=== PATIENT | female | born 1950 | race Caucasian/White ===

== ENCOUNTER 2016-09-14 12:38 | Emergency (ER) | payer MEDICARE ==
[2016-09-14] MEDS ORDERED: NORMAL SALINE 500 ML IV ONE (12:52)
[2016-09-14 13:16] LABS: ABSOLUTE EOSINOPHILS # (AUTO) 0.4 10^3/uL (0.0-0.6); ABSOLUTE LYMPHOCYTES (AUTO) 1.7 10^3/uL (0.5-4.7); ABSOLUTE MONOCYTES (AUTO) 0.4 10^3/uL (0.1-1.4); ABSOLUTE NEUT (AUTO) 3.2 10^3/uL (1.7-8.2); BASOPHILS % (AUTO) 0.8 % (0-2); EOSINOPHILS % (AUTO) 7.1 % (0-6); HEMATOCRIT 34.7 % (36.0-47.0); HEMOGLOBIN 11.9 g/dL (12.0-15.5); LYMPHOCYTES % (AUTO) 29.2 % (13-45); MEAN CORPUSCULAR HEMOGLOBIN 29.6 pg (27.0-33.4); MEAN CORPUSCULAR HGB CONC 34.3 g/dL (32.0-36.0); MEAN CORPUSCULAR VOLUME 86 fl (80-97); MONOCYTES % (AUTO) 7.6 % (3-13); RED BLOOD COUNT 4.02 10^6/uL (3.72-5.28); RED CELL DISTRIBUTION WIDTH 12.9 % (11.5-14.0); SEGMENTED NEUTROPHILS % (AUTO) 55.3 % (42-78); WHITE BLOOD COUNT 5.7 10^3/uL (4.0-10.5)
[2016-09-14 13:33] LABS: ALANINE AMINOTRANSFERASE 38 U/L (9-52); ALBUMIN 3.9 g/dL (3.5-5.0); ALKALINE PHOSPHATASE 71 U/L (38-126); ANION GAP 13 (5-19); ASPARTATE AMINO TRANSFERASE 58 U/L (14-36); BILIRUBIN,DIRECT 0.1 mg/dL (0.0-0.4); BILIRUBIN,TOTAL 0.6 mg/dL (0.2-1.3); BLOOD UREA NITROGEN 13 mg/dL (7-20); CARBON DIOXIDE 26 mmol/L (22-30); CHLORIDE 103 mmol/L (98-107); CREATININE RESULT 0.62 mg/dL (0.52-1.25); GLUCOSE 124 mg/dL (75-110); LIPASE 12.5 U/L (23-300); POTASSIUM 3.7 mmol/L (3.6-5.0); SODIUM 141.6 mmol/L (137-145); TOTAL PROTEIN 6.5 g/dL (6.3-8.2)
--- NOTE | 2016-09-14 15:09 | ER Document Report ---
ED General - General Chief Complaint: Flank Pain Stated Complaint: FLANK PAIN TRAVEL OUTSIDE OF THE [place] IN LAST 30 DAYS: No - HPI Patient complains to provider of: multiple falls flank pain Notes: Patient seen at the multiple falls and flank pain. Patient states she is hurting the right flank of Rebekah were there is a large bruise. Patient states multiple falls the last few days today fell again after she slipped out of the tub. Patient states she normally walks around a cane however the been using cocaine for the last few days. Patient otherwise denies any other complaints patient does have midline neck pain was placed in the c-collar by EMS patient states his pain is chronic. Otherwise patient denies any loss of consciousness chest pain abdominal pain currently. - Related Data Allergies/Adverse Reactions: No Known Allergies Allergy (Verified 12/30/14 00:58) Past Medical History - Social History Smoking Status: Never Smoker Chew tobacco use (# tins/day): No Frequency of alcohol use: None Drug Abuse: None Family History: Reviewed & Not Pertinent - Past Medical History Cardiac Medical History: Reports: Hx Hypercholesterolemia, Hx Hypertension Pulmonary Medical History: Reports: Hx Pneumonia Endocrine Medical History: Reports: Hx Diabetes Mellitus Type 2 Psychiatric Medical History: Reports: Hx Depression Past Surgical History: Reports: Hx Hysterectomy, Hx Orthopedic Surgery - left rotater cuff repainr - Immunizations Hx Diphtheria, Pertussis, Tetanus Vaccination: Yes Hx Pneumococcal Vaccination: 07/01/12 Review of Systems - Review of Systems Constitutional: No symptoms reported EENT: No symptoms reported Cardiovascular: No symptoms reported Respiratory: No symptoms reported Gastrointestinal: Other - Flank pain falls Genitourinary: No symptoms reported Female Genitourinary: No symptoms reported Musculoskeletal: No symptoms reported Skin: No symptoms reported Hematologic/Lymphatic: No symptoms reported Neurological/Psychological: No symptoms reported Physical Exam - Vital signs Interpretation: Normal - General General appearance: Appears well, Alert - HEENT Head: Normocephalic, Atraumatic Eyes: Normal Pupils: PERRL - Respiratory Respiratory status: No respiratory distress Chest status: Nontender Breath sounds: Normal Chest palpation: Normal - Cardiovascular Rhythm: Regular Heart sounds: Normal auscultation Murmur: No - Abdominal Inspection: Normal Distension: No distension Bowel sounds: Normal Tenderness: Nontender Organomegaly: No organomegaly Notes: Mother says contusion of the right flank. - Back Back: Normal, Nontender - Extremities General upper extremity: Normal inspection, Nontender, Normal color, Normal ROM , Normal temperature General lower extremity: Normal inspection, Nontender, Normal color, Normal ROM , Normal temperature, Normal weight bearing. No: Bean's sign - Neurological Neuro grossly intact: Yes Cognition: Normal Orientation: AAOx4 [place] Coma Scale Eye Opening: Spontaneous [place] Coma Scale Verbal: Oriented [place] Coma Scale Motor: Obeys Commands [place] Coma Scale Total: 15 Speech: Normal Motor strength normal: LUE, RUE, LLE, RLE Sensory: Normal - Psychological Associated symptoms: Normal affect, Normal mood - Skin Skin Temperature: Warm Skin Moisture: Dry Skin Color: Normal Course - Re-evaluation Re-evalutation: 09/14/16 15:53 CT scan not revealing traumatic injury. Patient's lab work also showed no critical etiology patient's urinalysis was very concentrated also signs of infection. Patient was started on Macrobid urine was sent for culture. Encouraged patient to use her cane at home. Patient is requesting a walker. Prescription for 1 rolling walker will be given to the patient. Patient discharged home patient was happy with her care - Laboratory Result Diagrams: 09/14/16 13:07 09/14/16 13:07 Laboratory results interpreted by me: 09/14/16 09/14/16 09/14/16 13:07 13:07 14:40 Hgb 11.9 L Hct 34.7 L Eosinophils % 7.1 H Glucose 124 H AST 58 H Lipase 12.5 L Ur Leukocyte Esterase LARGE H Discharge - Discharge Clinical Impression: Multiple contusions, Chronic neck pain, Dehydration Falls Qualifiers: Encounter type: initial encounter Qualified Code(s): W19.XXXA - Unspecified fall, initial encounter UTI (urinary tract infection) Qualifiers: Urinary tract infection type: acute cystitis Hematuria presence: without hematuria Qualified Code(s): N30.00 - Acute cystitis without hematuria Condition: Good Disposition: HOME, SELF-CARE Instructions: Contusion ([facility]), Nitrofurantoin ([facility]), Urinary Tract Infection ( [facility]), Dehydration ([facility]) Additional Instructions: Your CAT scan today shows no signs of acute injury. Please continue to use her cane at all times when ambulating at home. Follow-up with your primary care physician. Prescriptions: Nitrofurantoin/Nitrofuran Mac [Macrobid 100 mg Capsule] 1 tab PO BID #14 capsule Walker [Ultra-Light Rollator] 1 each MC DAILY #1 each Referrals: MASON GARCIA FNP [Primary Care Provider] - Follow up in 3-5 days
[2016-09-14 15:25] LABS: APPEARANCE,URINE SLIGHTLY-CLOUDY; BILIRUBIN,URINE NEGATIVE (NEGATIVE); GLUCOSE, URINE NEGATIVE (NEGATIVE); KETONES,URINE NEGATIVE (NEGATIVE); LEUKOCYTE ESTERASE,URINE LARGE (NEGATIVE); NITRITE,URINE NEGATIVE (NEGATIVE); PROTEIN,URINE NEGATIVE (NEGATIVE); URINE SPECIFIC GRAVITY 1.045; UROBILINOGEN,URINE NEGATIVE mg/dL (<2.0)
[2016-09-14 19:05] VITALS: BP 112/56
== END 2016-09-14 15:41 | disposition home or self-care (01) ==
LOC: ER 12:38
DX: N30.00 Acute cystitis without hematuria (principal); E86.0 Dehydration; G89.29 Other chronic pain; M54.2 Cervicalgia; W18.2XXA Fall in (into) shower or empty bathtub, initial encounter; R10.9 Unspecified abdominal pain; E78.00 Pure hypercholesterolemia, unspecified; I10 Essential (primary) hypertension; E11.9 Type 2 diabetes mellitus without complications; Z90.710 Acquired absence of both cervix and uterus
CPT/HCPCS: 99284; 96360; 36415; 83690; 85025; 80053; 81001; 70450; 72125; 74177; J7040

== ENCOUNTER 2016-09-22 21:26 | Emergency (ER) | payer MEDICARE ==
[2016-09-22 21:54] VITALS: BP 165/89
== END 2016-09-23 01:10 | disposition left against medical advice (07) ==
LOC: ER 21:26
DX: Z53.21 Procedure and treatment not carried out due to patient leaving prior to being seen by health care provider (principal)

== ENCOUNTER 2016-09-24 22:30 | Emergency (ER) | payer MEDICARE ==
[2016-09-25] LABS: APPEARANCE,URINE CLEAR; BILIRUBIN,URINE NEGATIVE (NEGATIVE); GLUCOSE, URINE >=500 mg/dL (NEGATIVE); KETONES,URINE NEGATIVE (NEGATIVE); LEUKOCYTE ESTERASE,URINE SMALL (NEGATIVE); NITRITE,URINE NEGATIVE (NEGATIVE); PROTEIN,URINE NEGATIVE (NEGATIVE); URINE SPECIFIC GRAVITY 1.003; UROBILINOGEN,URINE NEGATIVE mg/dL (<2.0)
[2016-09-25] MEDS ORDERED: NORMAL SALINE 1000 ML 1,000 ML IV ONE ×2 (02:46→03:21)
[2016-09-25] MEDS ORDERED: ACETAMINOPHEN 325 MG TABLET PO ONE (02:47)
--- NOTE | 2016-09-25 02:59 | ER Document Report ---
ED General - General Chief Complaint: Leg Injury Stated Complaint: LEG/FLANK PAIN Notes: Patient is a 66 year old female presents with complaint of pain in her left ankle and lower leg. She says she fell several days ago and which. She's trying to walk on the ankle but has pain in doing so. No fevers at home. She did have a temperature of 100.3 when she arrived to the ER, but she says this is new. No other injuries. No pain to her knee. Patient also complains of some ice and flank pain. She says she's had this for 6 months. She seen her doctor as well as a kidney doctor. No exact reason has been found for why she has right flank pain. She admits to some coughing and raising congestion. No headache. TRAVEL OUTSIDE OF THE [place] IN LAST 30 DAYS: No - Related Data Allergies/Adverse Reactions: No Known Allergies Allergy (Verified 09/24/16 22:40) Past Medical History - Social History Smoking Status: Unknown if Ever Smoked Frequency of alcohol use: None Drug Abuse: None Family History: Reviewed & Not Pertinent - Past Medical History Cardiac Medical History: Reports: Hx Hypercholesterolemia, Hx Hypertension Pulmonary Medical History: Reports: Hx Pneumonia Endocrine Medical History: Reports: Hx Diabetes Mellitus Type 2 Renal/ Medical History: Denies: Hx Peritoneal Dialysis Psychiatric Medical History: Reports: Hx Depression Past Surgical History: Reports: Hx Hysterectomy, Hx Orthopedic Surgery - left rotater cuff repainr - Immunizations Hx Diphtheria, Pertussis, Tetanus Vaccination: Yes Hx Pneumococcal Vaccination: 07/01/12 Review of Systems - Review of Systems Notes: My Normal Review Basic REVIEW OF SYSTEMS: CONSTITUTIONAL : Denies fever, chills, or sweats. Denies recent illness. EENT: Cough. CARDIOVASCULAR: Denies chest pain. RESPIRATORY: Cough. GASTROINTESTINAL: Denies abdominal pain. Denies nausea, vomiting, or diarrhea. Denies constipation. Last BM: Genitourinary: No dysuria. No urinary frequency. MUSCULOSKELETAL: Right-sided flank pain. Left ankle pain. SKIN: Denies rash or skin lesions. HEMATOLOGIC : Denies easy bruising or bleeding. LYMPHATIC: Denies swollen, enlarged glands. NEUROLOGICAL: Denies altered mental status or loss of consciousness. Denies headache. Denies weakness or paralysis or loss of use of either side. Denies problems with gait or speech. Denies sensory or motor loss. ALL OTHER SYSTEMS REVIEWED AND NEGATIVE. Physical Exam - Vital signs Vitals: Temp Pulse Resp BP Pulse Ox 100.3 F 121 H 24 H 162/78 H 93 09/24/16 22:38 09/24/16 22:38 09/24/16 22:38 09/24/16 22:38 09/24/16 22:38 - Notes Notes: General Appearance: Well nourished, alert, cooperative, no acute distress, mild obvious discomfort. Vitals: reviewed, See vital signs table. Head: no swelling or tenderness to the head Eyes: PERRL, EOMI, Conjuctiva clear Mouth: No decreasd moisture Throat: No tonsillar inflammation, No airway obstruction, No lymphadenopathy Neck: Supple, no neck tenderness, No thyromegaly Lungs: No wheezing, No rales, No rhonci, No accessory muscle use, good air exchange bilaterally. Heart: Normal rate, Regular rythm, No murmur, no rub Abdomen: Normal BS, soft, No rigidity, No abdominal tenderness, No guarding, no rebound, no abdominal masses, no organomegaly. No reproducible flank pain to palpation. Back: Mild pain palpation over the right lower posterior ribs. No bruising or swelling. Extremities: strength 5/5 in all extremities, good pulses in all extremities, patient has of swelling to left ankle. Pain with palpation or movement of the left ankle. Remainder foot is nontender. Patient does have small abrasion to the lateral aspect of left lower leg. Small amount of surrounding erythema. No edema. Skin: warm, dry, appropriate color, no rash Neuro: speech clear, oriented x 3, normal affect, responds appropriately to questions. Course - Re-evaluation Re-evalutation: 09/25/16 03:00 I initially order Tylenol for fever, but the nurse rechecked the patient's temp and it is normal. Tylenol dose was canceled. - Vital Signs Vital signs: Temp Pulse Resp BP Pulse Ox 98 F 121 H 24 H 162/78 H 93 09/25/16 03:00 09/24/16 22:38 09/24/16 22:38 09/24/16 22:38 09/24/16 22:38 - Laboratory Result Diagrams: 09/25/16 03:15 09/25/16 03:15 Laboratory results interpreted by me: 04/09/25/16 09/25/16 23:28 03:15 03:15 Hct 35.7 L Lymphocytes % 11.7 L Eosinophils % 8.6 H Absolute Eosinophils 0.7 H Glucose 177 H Urine Glucose (UA) >=500 H Ur Leukocyte Esterase SMALL H - Transfer of Care Notes: 09/25/16 04:45 The exact cause of the patient's chronic flank pain is unclear. She is orally had previous CT scans performed by the cafeteria assistant which were negative. I do not think a repeat CT scan would be appropriate at this time. Patient first arrived was tachycardic. I think this is related to pain from her ankle. She had a temperature 100.3. This was rechecked and her temp was 98 on recheck. She's not given Tylenol or any antipyretics before rechecking her temp. She has no leukocytosis. She has a small area on the left lower leg from where the [place] cause an abrasion when she fell. There is just a small amount of surrounding erythema. We will place her antibiotic for potential developing cellulitis. We'll give her a brace for her ankle as well as crutches. Encouraged self her ankles long she is having pain with weightbearing. Encourage return to ER shows worsening pain, fevers, or spreading redness. Patient agrees with plan will be discharged home. Dictation of this chart was performed using voice recognition software; therefore, there may be some unintended grammatical errors. Discharge - Discharge Clinical Impression: Chronic flank pain Cellulitis Qualifiers: Site of cellulitis: extremity Site of cellulitis of extremity: lower extremity Laterality: left Qualified Code(s): L03.116 - Cellulitis of left lower limb Left ankle sprain Qualifiers: Encounter type: initial encounter Involved ligament of ankle: unspecified ligament Qualified Code(s): S93.402A - Sprain of unspecified ligament of left ankle, initial encounter Condition: Good Disposition: HOME, SELF-CARE Instructions: Oral Narcotic Medication ([facility]) Additional Instructions: CELLULITIS: You have an infection of your skin and underlying soft tissues called cellulitis. This is due to bacteria, which can enter through any break in the skin, or even through an irritated hair follicle. Untreated, cellulitis will usually worsen. Antibiotics are required. Usually, warm packs or warm soaks, and elevation of the infected area are recommended. You should start getting better within 24 to 36 hours. Most infections respond quickly to the right medication. Follow-up care is important, however, to check for abscess (boil) formation, unsuspected foreign body, or resistant infection. If you develop fever, chills, or if the area of infection is becoming rapidly more swollen or painful, call the doctor at once. ANTIBIOTIC THERAPY: You have been given an antibiotic prescription. It's important that you take all the medication, unless instructed otherwise by your physician. Failure to complete the entire course can result in relapse of your condition. Common side effects of antibiotics include nausea, intestinal cramping, or diarrhea. Women may develop vaginal yeast infections, and babies can get yeast (thrush) in the mouth following the use of antibiotics. Contact your physician if you develop significant side effects from this medication. Allergy to this antibiotic can result in hives, wheezing, faintness, or itching. If symptoms of allergy occur, stop the medication and call the doctor. ORAL NARCOTIC MEDICATION: You have been given a prescription for pain control. This medication is a narcotic. It's best taken with food, as nausea can result if taken on an empty stomach. Don't operate machinery or drive within six hours of taking this medication. Do not combine this medicine with alcohol, or with any medication which can cause sedation (such as cold tablets or sleeping pills) unless you get permission from the physician. Narcotics tend to cause constipation. If possible, drink plenty of fluids and eat a diet high in fiber and fruits. Please be aware that prescription narcotics also have the potential for abuse. People become addicted to these medications because of the general sense of wellbeing that they induce. This feeling along with a significant reduction in tension, anxiety, and aggression provides a stimulating seductive quality to these drugs. Once your pain is under control, we encourage you to discard your unused narcotics. FOLLOW-UP CARE: If you have been referred to a physician for follow-up care, call the physician s office for an appointment as you were instructed or within the next two days. If you experience worsening or a significant change in your symptoms, notify the physician immediately or return to the Emergency Department at any time for re-evaluation. Please return to the ER immediately if you have worsening pain, fevers, spreading redness on your leg, or if you feel like you are worsening in any way. Prescriptions: Tramadol HCl [Ultram 50 mg Tablet] 50 mg PO Q6HP PRN #14 tablet PRN Reason: Cephalexin Monohydrate [Keflex 500 mg Capsule] 500 mg PO QID #28 capsule Forms: Return to Work Referrals: MASON GARCIA FNP [Primary Care Provider] - 09/28/16
[2016-09-25] MEDS ORDERED: TRAMADOL HCL 50 MG TABLET PO ONE (03:02)
[2016-09-25 03:34] LABS: ABSOLUTE BASOPHILS # (AUTO) 0.1 10^3/uL (0.0-0.2); ABSOLUTE EOSINOPHILS # (AUTO) 0.7 10^3/uL (0.0-0.6); ABSOLUTE MONOCYTES (AUTO) 0.5 10^3/uL (0.1-1.4); ABSOLUTE NEUT (AUTO) 5.9 10^3/uL (1.7-8.2); BASOPHILS % (AUTO) 0.7 % (0-2); EOSINOPHILS % (AUTO) 8.6 % (0-6); HEMATOCRIT 35.7 % (36.0-47.0); HEMOGLOBIN 12.1 g/dL (12.0-15.5); HGB HCT DIFFERENCE 0.6; LYMPHOCYTES % (AUTO) 11.7 % (13-45); MEAN CORPUSCULAR HEMOGLOBIN 29.6 pg (27.0-33.4); MEAN CORPUSCULAR HGB CONC 34.1 g/dL (32.0-36.0); MEAN CORPUSCULAR VOLUME 87 fl (80-97); MONOCYTES % (AUTO) 6.3 % (3-13); RED CELL DISTRIBUTION WIDTH 12.7 % (11.5-14.0); SEGMENTED NEUTROPHILS % (AUTO) 72.7 % (42-78); WHITE BLOOD COUNT 8.2 10^3/uL (4.0-10.5)
[2016-09-25 03:45] LABS: ALANINE AMINOTRANSFERASE 29 U/L (9-52); ALBUMIN 3.7 g/dL (3.5-5.0); ALKALINE PHOSPHATASE 67 U/L (38-126); ANION GAP 13 (5-19); ASPARTATE AMINO TRANSFERASE 22 U/L (14-36); BILIRUBIN,DIRECT 0.3 mg/dL (0.0-0.4); BILIRUBIN,TOTAL 0.5 mg/dL (0.2-1.3); BLOOD UREA NITROGEN 15 mg/dL (7-20); CALCIUM 9.1 mg/dL (8.4-10.2); CARBON DIOXIDE 26 mmol/L (22-30); CHLORIDE 101 mmol/L (98-107); CREATININE RESULT 0.89 mg/dL (0.52-1.25); GLUCOSE 177 mg/dL (75-110); POTASSIUM 3.9 mmol/L (3.6-5.0); SODIUM 140.1 mmol/L (137-145); TOTAL PROTEIN 6.6 g/dL (6.3-8.2)
[2016-09-25] MEDS ORDERED: CEPHALEXIN 500 MG CAPSULE PO ONE (04:41)
[2016-09-25 06:04] VITALS: BP 112/64
== END 2016-09-25 06:32 | disposition home or self-care (01) ==
LOC: ER 22:30
DX: S93.402A Sprain of unspecified ligament of left ankle, initial encounter (principal); L03.116 Cellulitis of left lower limb; R10.9 Unspecified abdominal pain; M25.572 Pain in left ankle and joints of left foot; M79.605 Pain in left leg; R05 Cough; R09.81 Nasal congestion; W19.XXXA Unspecified fall, initial encounter
CPT/HCPCS: 99284; 96360; 36415; 85025; 80053; 81001; 73610; 71020; 73590; L1902; A9270 ×2; J7030

== ENCOUNTER 2016-10-12 18:28 | Emergency (ER) | payer MEDICARE ==
--- NOTE | 2016-10-12 19:57 | ER Document Report ---
ED Medical Screen (RME) - General Mode of Arrival: Ambulatory Information source: Patient TRAVEL OUTSIDE OF THE [place] IN LAST 30 DAYS: No <JONELLE BEGUM - Last Filed: 10/12/16 20:04> <BEATRIS BURR - Last Filed: 10/12/16 20:58> - General Chief Complaint: Back and rib pain Stated Complaint: BACK PAIN Time Seen by Provider: 10/12/16 19:56 Notes: Patient presents today with complaints of difficulty urinating, urinary odor, and frequency for one week. Patient is in pain management for chronic back pain , she reports that she saw her pain management doctor today who told her that this could possibly be a urinary tract infection. She states she was told to follow-up with her PCP for UTI workup however he is out of town. (JONELLE BEGUM) - Related Data Allergies/Adverse Reactions: No Known Allergies Allergy (Verified 09/24/16 22:40) Past Medical History - Past Medical History Cardiac Medical History: Reports: Hx Hypercholesterolemia, Hx Hypertension Pulmonary Medical History: Reports: Hx Pneumonia Endocrine Medical History: Reports: Hx Diabetes Mellitus Type 2 Renal/ Medical History: Denies: Hx Peritoneal Dialysis Psychiatric Medical History: Reports: Hx Depression Past Surgical History: Reports: Hx Hysterectomy, Hx Orthopedic Surgery - left rotater cuff repainr - Immunizations Hx Diphtheria, Pertussis, Tetanus Vaccination: Yes <JONELLE BEGUM - Last Filed: 10/12/16 20:04> Review of Systems - Review of Systems Genitourinary: See HPI, Burning, Dysuria, Other - odor <JONELLE BEGUM - Last Filed: 10/12/16 20:04> Course <JONELLE BEGUM - Last Filed: 10/12/16 20:04> - Laboratory Result Diagrams: 10/12/16 20:29 10/12/16 20:29 <BEATRIS BURR - Last Filed: 10/12/16 20:58> - Re-evaluation Re-evalutation: 10/12/16 20:58 I personally performed the services described in the documentation, reviewed and edited the documentation which was dictated to the scribe in my presence, and it accurately records my words and actions. (BEATRIS BURR) - Vital Signs Vital signs: Temp Pulse Resp BP Pulse Ox 98.0 F 83 18 116/65 93 10/12/16 18:56 10/12/16 18:56 10/12/16 18:56 10/12/16 18:56 10/12/16 18:56 - Laboratory Laboratory results interpreted by me: 10/12/16 10/12/16 20:29 20:29 Seg Neutrophils % 38.6 L Eosinophils % 8.6 H Urine Bilirubin MODERATE H Scribe Documentation - Scribe Written by Scribe:: Rashida Stroud, 10/12/20162005 acting as scribe for :: Garcia <JONELLE BEGUM - Last Filed: 10/12/16 20:04>
--- NOTE | 2016-10-12 20:34 | EKG REPORT ---
SEVERITY:- NORMAL ECG - SINUS RHYTHM : Confirmed by: Michael Goodrich 12-Oct-2016 20:33:27
[2016-10-12 20:48] LABS: ABSOLUTE BASOPHILS # (AUTO) 0.1 10^3/uL (0.0-0.2); ABSOLUTE EOSINOPHILS # (AUTO) 0.6 10^3/uL (0.0-0.6); ABSOLUTE MONOCYTES (AUTO) 0.6 10^3/uL (0.1-1.4); ABSOLUTE NEUT (AUTO) 2.7 10^3/uL (1.7-8.2); BASOPHILS % (AUTO) 0.9 % (0-2); EOSINOPHILS % (AUTO) 8.6 % (0-6); HEMATOCRIT 38.9 % (36.0-47.0); HEMOGLOBIN 13.1 g/dL (12.0-15.5); HGB HCT DIFFERENCE 0.4; LYMPHOCYTES % (AUTO) 43.3 % (13-45); MEAN CORPUSCULAR HGB CONC 33.8 g/dL (32.0-36.0); MEAN CORPUSCULAR VOLUME 86 fl (80-97); MONOCYTES % (AUTO) 8.6 % (3-13); RED BLOOD COUNT 4.52 10^6/uL (3.72-5.28); RED CELL DISTRIBUTION WIDTH 12.9 % (11.5-14.0); SEGMENTED NEUTROPHILS % (AUTO) 38.6 % (42-78); WHITE BLOOD COUNT 6.9 10^3/uL (4.0-10.5)
[2016-10-12 20:55] LABS: APPEARANCE,URINE CLEAR; BILIRUBIN,URINE MODERATE (NEGATIVE); GLUCOSE, URINE NEGATIVE (NEGATIVE); KETONES,URINE NEGATIVE (NEGATIVE); LEUKOCYTE ESTERASE,URINE NEGATIVE (NEGATIVE); NITRITE,URINE NEGATIVE (NEGATIVE); PROTEIN,URINE NEGATIVE (NEGATIVE); URINE SPECIFIC GRAVITY 1.028; UROBILINOGEN,URINE NEGATIVE mg/dL (<2.0)
[2016-10-12 21:09] LABS: ANION GAP 10 (5-19); BLOOD UREA NITROGEN 16 mg/dL (7-20); CALCIUM 9.3 mg/dL (8.4-10.2); CARBON DIOXIDE 26 mmol/L (22-30); CHLORIDE 101 mmol/L (98-107); CREATINE KINASE 35 U/L (30-135); CREATININE RESULT 0.68 mg/dL (0.52-1.25); GLUCOSE 157 mg/dL (75-110); POTASSIUM 4.1 mmol/L (3.6-5.0); SODIUM 137.4 mmol/L (137-145)
[2016-10-12 21:21] LABS: CREATINE KINASE MB < 0.22 ng/mL (<4.55); TROPONIN I < 0.012 ng/mL
[2016-10-12] MEDS ORDERED: LIDOCAINE 5% (700 MG) TRANSDERMAL ADH..PATCH TP ONE (21:46)
--- NOTE | 2016-10-12 21:50 | ER Document Report ---
ED General - General Chief Complaint: Urinary Problem Stated Complaint: BACK PAIN Time Seen by Provider: 10/12/16 19:56 Mode of Arrival: Ambulatory Notes: Patient is a 66-year-old female presents with 2 weeks of intermittent right flank and right lower rib pain. Described the pain is intermittent, stabbing, mild pain. Nothing improves or worsens the pain. No history of similar symptoms in the past. Patient also notes associated diffuse body aches but has not had a fever additional constitutional symptoms. She does chronically take oxycodone 10 mg 3 times daily for her chronic pain. She has not seen her primary care doctor regarding today's concerns. TRAVEL OUTSIDE OF THE [place] IN LAST 30 DAYS: No - Related Data Allergies/Adverse Reactions: No Known Allergies Allergy (Verified 09/24/16 22:40) Past Medical History - General Information source: Patient - Social History Smoking Status: Never Smoker Frequency of alcohol use: None Drug Abuse: None Lives with: Spouse/Significant other Family History: Reviewed & Not Pertinent - Past Medical History Cardiac Medical History: Reports: Hx Hypercholesterolemia, Hx Hypertension Pulmonary Medical History: Reports: Hx Pneumonia Endocrine Medical History: Reports: Hx Diabetes Mellitus Type 2 Renal/ Medical History: Denies: Hx Peritoneal Dialysis Psychiatric Medical History: Reports: Hx Depression Past Surgical History: Reports: Hx Hysterectomy, Hx Orthopedic Surgery - left rotater cuff repainr - Immunizations Hx Diphtheria, Pertussis, Tetanus Vaccination: Yes Hx Pneumococcal Vaccination: 07/01/12 Review of Systems - Review of Systems Notes: Constitutional: Negative for fever. Positive for body aches HENT: Negative for sore throat. Eyes: Negative for visual changes. Cardiovascular: Negative for chest pain. Respiratory: Negative for shortness of breath. Gastrointestinal: Negative for abdominal pain, vomiting or diarrhea. Genitourinary: Negative for dysuria. Musculoskeletal: Positive for lower right rib pain Skin: Negative for rash. Neurological: Negative for headaches, weakness or numbness. 10 point ROS negative except as marked above and in HPI. Physical Exam - Vital signs Vitals: Temp Pulse Resp BP Pulse Ox 98.0 F 83 18 116/65 93 10/12/16 18:56 10/12/16 18:56 10/12/16 18:56 10/12/16 18:56 10/12/16 18:56 Interpretation: Normal Notes: PHYSICAL EXAMINATION: GENERAL: Well-appearing, well-nourished and in no acute distress. HEAD: Atraumatic, normocephalic. EYES: Pupils equal round and reactive to light, extraocular movements intact, sclera anicteric, conjunctiva are normal. ENT: nares patent, oropharynx clear without exudates. Moist mucous membranes. NECK: Normal range of motion, supple without lymphadenopathy LUNGS: Breath sounds clear to auscultation bilaterally and equal. No wheezes rales or rhonchi. HEART: Regular rate and rhythm without murmurs Chest wall: Pain on palpation of the right lower 2 ribs ABDOMEN: Soft, nontender, normoactive bowel sounds. No guarding, no rebound. No masses appreciated. EXTREMITIES: Normal range of motion, no pitting or edema. No cyanosis. NEUROLOGICAL: No focal neurological deficits. Moves all extremities spontaneously and on command. PSYCH: Normal mood, normal affect. SKIN: Warm, Dry, normal turgor, no rashes or lesions noted. Course - Re-evaluation Re-evalutation: 10/12/16 21:48 Patient presents with complaints of right lower rib pain that has been present for at least the past 2 weeks. She has had a recent upper respiratory infection has been having persistent coughing with associated likely costochondritis. Her laboratories are unremarkable including a troponin. Her clinical history and exam is not consistent with acute pulmonary embolus. Her Well's score is 0. I suspect a significant component of hyperalgesia in the setting of chronic oxycodone use patient does use a total of 30 mg of oxycodone daily. We have discussed the importance of coming off these medications as soon as possible as a likely contributed to her chronic daily pain. At this time do not suspect a life-threatening pathology and suspect that patient can be well managed as an outpatient with close follow-up with primary care doctor. At this time will discharge with return precautions and follow-up recommendations. Verbal discharge instructions given a the bedside and opportunity for questions given. Medication warnings reviewed. Patient is in agreement with this plan and has verbalized understanding of return precautions and the need for primary care follow-up in the next 24-72 hours. 10/13/16 03:25 - Vital Signs Vital signs: Temp Pulse Resp BP Pulse Ox 98.0 F 77 16 102/72 95 10/12/16 18:56 10/12/16 21:57 10/12/16 21:57 10/12/16 21:57 10/12/16 21:57 - Laboratory Result Diagrams: 10/12/16 20:29 10/12/16 20:29 Laboratory results interpreted by me: 10/12/16 10/12/16 10/12/16 20:29 20:29 20:29 Seg Neutrophils % 38.6 L Eosinophils % 8.6 H Glucose 157 H Urine Bilirubin MODERATE H - Diagnostic Test Radiology reviewed: Image reviewed, Reports reviewed Radiology results interpreted by me: 10/13/16 03:26 Chest x-ray: No acute infiltrate or pneumothorax - EKG Interpretation by Me Additional EKG results interpreted by me: 10/13/16 03:26 Normal sinus rhythm. Rate 77. No ST elevations or depressions. QTC is 440. Poor tracing due to movement Discharge - Discharge Clinical Impression: Rib pain on right side Condition: Good Disposition: HOME, SELF-CARE Additional Instructions: Your chest wall pain is due to bruising of your ribs. This pain can last for up to 6 weeks. It is very important that you continue to take purposeful deep breaths. For your pain: Continue to take ibuprofen 600 mg every 6 hours or Tylenol 1000 mg every 6 hours. Apply local lidocaine to the area per bottle instructions. There is a product sold [id number] called "Aspercreme with lidocaine" that you can use for this purpose. Please follow-up with her primary care doctor in the next 2-3 days. Return to the emergency department immediately if you develop worsening shortness of breath, increased pain, begin coughing blood, pass out, or have any other symptoms that are worrisome to you. Referrals: MASON GARCIA FNP [Primary Care Provider] - Follow up as needed
[2016-10-12 21:58] VITALS: BP 102/72
== END 2016-10-12 21:58 | disposition home or self-care (01) ==
LOC: ER 18:28
DX: R07.81 Pleurodynia (principal); R10.9 Unspecified abdominal pain; E78.00 Pure hypercholesterolemia, unspecified; I10 Essential (primary) hypertension; E11.9 Type 2 diabetes mellitus without complications; G89.29 Other chronic pain; Z90.710 Acquired absence of both cervix and uterus
CPT/HCPCS: 36415; 71020; 80048; 81001; 82550; 82553; 84484; 85025; 93005; 93010; 99284

== ENCOUNTER 2016-11-29 23:33 | Emergency (ER) | payer MEDICARE ==
--- NOTE | 2016-11-30 00:45 | RADIOLOGY REPORT (SQ) ---
EXAM DESCRIPTION: ANKLE RIGHT COMPLETE COMPLETED DATE/TIME: 11/30/2016 12:30 am REASON FOR STUDY: injury COMPARISON: None. NUMBER OF VIEWS: Three views. TECHNIQUE: AP, lateral, and oblique radiographic images acquired of the right ankle. LIMITATIONS: None. FINDINGS: MINERALIZATION: Normal. BONES: No acute fracture or dislocation. No worrisome bone lesions. Small plantar facial enthesoph yte. JOINTS: No effusions. SOFT TISSUES: Moderate lateral malleolar soft tissue swelling. OTHER: No other significant finding. IMPRESSION: Moderate swelling of the right ankle. TECHNICAL DOCUMENTATION: JOB ID: [id number] [employer]- All Rights Reserved
--- NOTE | 2016-11-30 02:32 | ER Document Report ---
ED General - General Chief Complaint: Ankle Injury Stated Complaint: FALL/ANKLE PAIN Time Seen by Provider: 11/30/16 02:28 Mode of Arrival: Medic Information source: Patient TRAVEL OUTSIDE OF THE [place] IN LAST 30 DAYS: No - HPI Notes: Pt. reports slipping falling down one step outside, twisting her right ankle, pt. reports falling onto left side, denies hitting head, this happened around 1000 this am. Pt. has been ambulating on foot, went to scientologist. Patient reports discoloration and pain to the lateral aspect of the right ankle. She denies any knee pain or significant foot pain. She reports no numbness or paresthesia. Pt. also reports having constipation for 4 days with no bowel movement. pt. took milk of mag today and a fleet enema, no results. Pt. oxycodone around 1230. Patient is in pain management and takes narcotics regularly. Patient denies any abdominal pain or nausea or vomiting. - Related Data Allergies/Adverse Reactions: No Known Allergies Allergy (Verified 09/24/16 22:40) Past Medical History - General Information source: Patient - Social History Smoking Status: Unknown if Ever Smoked Frequency of alcohol use: None Drug Abuse: None Lives with: Family Family History: Reviewed & Not Pertinent Patient has suicidal ideation: No Patient has homicidal ideation: No - Past Medical History Cardiac Medical History: Reports: Hx Hypercholesterolemia, Hx Hypertension Pulmonary Medical History: Reports: Hx Pneumonia Endocrine Medical History: Reports: Hx Diabetes Mellitus Type 2 Renal/ Medical History: Denies: Hx Peritoneal Dialysis Psychiatric Medical History: Reports: Hx Depression Past Surgical History: Reports: Hx Hysterectomy, Hx Orthopedic Surgery - left rotater cuff repainr - Immunizations Hx Diphtheria, Pertussis, Tetanus Vaccination: Yes Hx Pneumococcal Vaccination: 07/01/12 Review of Systems - Review of Systems Notes: REVIEW OF SYSTEMS: CONSTITUTIONAL : Denies fever, chills, or sweats. Denies recent illness. EENT: Denies eye, ear, throat, or mouth pain or symptoms. Denies nasal or sinus congestion or discharge. Denies throat, tongue, or mouth swelling or difficulty swallowing. CARDIOVASCULAR: Denies chest pain. Denies palpitations or racing or irregular heart beat. Denies ankle edema. RESPIRATORY: Denies cough, cold, or chest congestion. Denies shortness of breath, difficulty breathing, or wheezing. GASTROINTESTINAL: Denies abdominal pain or distention. Denies nausea, vomiting , or diarrhea. Denies blood in vomitus, stools, or per rectum. Denies black, tarry stools. GENITOURINARY: Denies difficulty urinating, painful urination, burning, frequency, blood in urine, or discharge. FEMALE GENITOURINARY: Denies vaginal bleeding, heavy or abnormal periods, irregular periods. Denies vaginal discharge or odor. MUSCULOSKELETAL: Denies back or neck pain or stiffness. Reports right ankle pain. SKIN: Denies rash, lesions or sores. HEMATOLOGIC : Denies easy bruising or bleeding. LYMPHATIC: Denies swollen, enlarged glands. NEUROLOGICAL: Denies confusion or altered mental status. Denies passing out or loss of consciousness. Denies dizziness or lightheadedness. Denies headache. Denies weakness or paralysis or loss of use of either side. Denies problems with gait or speech. Denies sensory loss, numbness, or tingling. Denies seizures. PSYCHIATRIC: Denies anxiety or stress. Denies depression, suicidal ideation, or homicidal ideation. ALL OTHER SYSTEMS REVIEWED AND NEGATIVE. Dictation was performed using [employer] voice recognition software Physical Exam - Vital signs Vitals: Temp Pulse Resp BP Pulse Ox 98.3 F 93 18 108/60 97 11/29/16 23:53 11/29/16 23:53 11/29/16 23:53 11/29/16 23:53 11/29/16 23:53 - Notes Notes: PHYSICAL EXAMINATION: GENERAL: Well-appearing, well-nourished and in no acute distress. HEAD: Atraumatic, normocephalic. EYES: Pupils equal round and reactive to light, extraocular movements intact, conjunctiva are normal. ENT: Nares patent, oropharynx clear without exudates. Moist mucous membranes. NECK: Normal range of motion, supple without lymphadenopathy LUNGS: Breath sounds clear to auscultation bilaterally and equal. No wheezes rales or rhonchi. HEART: Regular rate and rhythm without murmurs ABDOMEN: Soft, nontender, nondistended abdomen. No guarding, no rebound. No masses appreciated. Obese. Female : deferred Musculoskeletal: No cyanosis. Pain over the right lateral malleolus and deltoid ligament with moderate swelling and ecchymosis. The foot and knee are nonfocal. Distally the patient has good sensation and capillary refill and pulses. NEUROLOGICAL: Cranial nerves grossly intact. Normal speech, normal gait. Normal sensory, motor exams PSYCH: Normal mood, normal affect. SKIN: Warm, Dry, normal turgor, no rashes or lesions noted. Course - Re-evaluation Re-evalutation: 11/30/16 03:24 X-ray negative of the right ankle. Patient was given a Chang wrap. She has an ankle splint and a walker at home which she will use. Patient given magnesium citrate for constipation. We will start the patient on MiraLAX. Follow up with orthopedics as needed. - Vital Signs Vital signs: Temp Pulse Resp BP Pulse Ox 98.3 F 93 18 108/60 97 11/29/16 23:53 11/29/16 23:53 11/29/16 23:53 11/29/16 23:53 11/29/16 23:53 Discharge - Discharge Clinical Impression: Constipation Qualifiers: Constipation type: slow transit constipation Qualified Code(s): K59.01 - Slow transit constipation Ankle sprain Qualifiers: Encounter type: initial encounter Involved ligament of ankle: deltoid ligament Laterality: right Qualified Code(s): S93.421A - Sprain of deltoid ligament of right ankle, initial encounter Instructions: Chang Wrap ([facility]), Sprained Ankle ([facility]), Constipation ([facility]) Additional Instructions: Elevate your leg. Using a walker. Follow-up with orthopedics if pain and swelling do not improve. Use MiraLAX as directed for constipation. Drink plenty of fluids. Prescriptions: Polyethylene Glycol 3350 [Miralax] 1 cap PO DAILY #527 powder
[2016-11-30] MEDS ORDERED: MAGNESIUM CITRATE 296 ML BOTTLE PO ONE (03:04)
[2016-11-30 03:22] VITALS: BP 136/75
== END 2016-11-30 03:22 | disposition home or self-care (01) ==
LOC: ER 23:33
DX: S93.421A Sprain of deltoid ligament of right ankle, initial encounter (principal); W10.9XXA Fall (on) (from) unspecified stairs and steps, initial encounter; K59.01 Slow transit constipation; I10 Essential (primary) hypertension; E11.9 Type 2 diabetes mellitus without complications; Z79.891 Long term (current) use of opiate analgesic
CPT/HCPCS: 99283; 73610; J3490

== ENCOUNTER 2017-01-21 18:36 | Emergency (ER) | payer MEDICARE ==
[2017-01-21 19:14] LABS: ABSOLUTE BASOPHILS # (AUTO) 0.1 10^3/uL (0.0-0.2); ABSOLUTE EOSINOPHILS # (AUTO) 0.6 10^3/uL (0.0-0.6); ABSOLUTE LYMPHOCYTES (AUTO) 3.1 10^3/uL (0.5-4.7); ABSOLUTE MONOCYTES (AUTO) 0.7 10^3/uL (0.1-1.4); BASOPHILS % (AUTO) 0.8 % (0-2); EOSINOPHILS % (AUTO) 8.2 % (0-6); HEMATOCRIT 34.5 % (36.0-47.0); HEMOGLOBIN 11.7 g/dL (12.0-15.5); HGB HCT DIFFERENCE 0.6; LYMPHOCYTES % (AUTO) 41.9 % (13-45); MEAN CORPUSCULAR HEMOGLOBIN 28.5 pg (27.0-33.4); MEAN CORPUSCULAR VOLUME 84 fl (80-97); MONOCYTES % (AUTO) 8.9 % (3-13); RED CELL DISTRIBUTION WIDTH 14.5 % (11.5-14.0); SEGMENTED NEUTROPHILS % (AUTO) 40.2 % (42-78); WHITE BLOOD COUNT 7.4 10^3/uL (4.0-10.5)
[2017-01-21 19:36] LABS: ANION GAP 8 (5-19); BLOOD UREA NITROGEN 23 mg/dL (7-20); CALCIUM 8.6 mg/dL (8.4-10.2); CARBON DIOXIDE 24 mmol/L (22-30); CHLORIDE 106 mmol/L (98-107); CREATININE RESULT 0.97 mg/dL (0.52-1.25); GLUCOSE 194 mg/dL (75-110); POTASSIUM 3.6 mmol/L (3.6-5.0); SODIUM 137.7 mmol/L (137-145)
--- NOTE | 2017-01-21 19:44 | RADIOLOGY REPORT (SQ) ---
EXAM DESCRIPTION: CHEST SINGLE VIEW COMPLETED DATE/TIME: 01/21/2017 7:30 pm REASON FOR STUDY: chest pain COMPARISON: 10/12/2016 EXAM PARAMETERS: NUMBER OF VIEWS: One view. TECHNIQUE: Single frontal radiographic view of the chest acquired. RADIATION DOSE: NA LIMITATIONS: None. FINDINGS: LUNGS AND PLEURA: No acute opacities, masses or pneumothorax. No pleural effusion. MEDIASTINUM AND HILAR STRUCTURES: Stable. HEART AND VASCULAR STRUCTURES: Stable. BONES: No acute findings. HARDWARE: None in the chest. OTHER: No other significant finding. IMPRESSION: NO ACUTE RADIOGRAPHIC FINDING IN THE CHEST. TECHNICAL DOCUMENTATION: JOB ID: [id number]
[2017-01-21] MEDS ORDERED: FAMOTIDINE 20 MG TABLET PO ONE (19:54)
[2017-01-21] MEDS ORDERED: ALBUTEROL SULFATE HFA (90 MCG/PUFF) 8 GM MDI (1 MDI/ER DISP) IH PRN (19:54)
--- NOTE | 2017-01-21 19:56 | ER Document Report ---
ED General - General Chief Complaint: Chest Pain > 30 Stated Complaint: CHEST PAIN Time Seen by Provider: 01/21/17 18:53 Notes: Patient is a 66-year-old female with past medical history of hypertension, hyperlipidemia, prior hiatal hernia who presents with 2 days of intermittent epigastric abdominal pain radiating into her chest. Does describe as a burning , throbbing pain that is intermittent in nature. It is worsened whenever she tries to eat. She states she normally takes omeprazole for the symptoms but ran out 3 days ago and her symptoms did start approximately 24 hours after her last dose of omeprazole. She denies any associated shortness of breath, hematemesis, or pain radiating to the arms, jaw or back. States she has had several episodes of vomiting when the pain presents but she describes it as a clear, watery-like emesis. TRAVEL OUTSIDE OF THE [place] IN LAST 30 DAYS: No - Related Data Allergies/Adverse Reactions: No Known Allergies Allergy (Verified 09/24/16 22:40) Past Medical History - General Information source: Patient - Social History Smoking Status: Never Smoker Chew tobacco use (# tins/day): No Frequency of alcohol use: None Drug Abuse: None Family History: Reviewed & Not Pertinent - Past Medical History Cardiac Medical History: Reports: Hx Hypercholesterolemia, Hx Hypertension Pulmonary Medical History: Reports: Hx Pneumonia Endocrine Medical History: Reports: Hx Diabetes Mellitus Type 2 Renal/ Medical History: Denies: Hx Peritoneal Dialysis Psychiatric Medical History: Reports: Hx Depression Past Surgical History: Reports: Hx Hysterectomy, Hx Orthopedic Surgery - left rotater cuff repainr - Immunizations Hx Diphtheria, Pertussis, Tetanus Vaccination: Yes Hx Pneumococcal Vaccination: 07/01/12 Review of Systems - Review of Systems Notes: Constitutional: Negative for fever. HENT: Negative for sore throat. Eyes: Negative for visual changes. Cardiovascular: Positive for chest pain. Respiratory: Negative for shortness of breath. Gastrointestinal: Negative for abdominal pain, positive for vomiting Genitourinary: Negative for dysuria. Musculoskeletal: Negative for back pain. Skin: Negative for rash. Neurological: Negative for headaches, weakness or numbness. 10 point ROS negative except as marked above and in HPI. Physical Exam - Vital signs Vitals: Temp Pulse Resp BP Pulse Ox 98.5 F 93 18 117/68 94 01/21/17 18:54 01/21/17 18:54 01/21/17 18:54 01/21/17 18:54 01/21/17 18:54 Interpretation: Normal Notes: PHYSICAL EXAMINATION: GENERAL: Well-appearing, well-nourished and in no acute distress. HEAD: Atraumatic, normocephalic. EYES: Pupils equal round and reactive to light, extraocular movements intact, sclera anicteric, conjunctiva are normal. ENT: nares patent, oropharynx clear without exudates. Moist mucous membranes. NECK: Normal range of motion, supple without lymphadenopathy LUNGS: Breath sounds clear to auscultation bilaterally and equal. No wheezes rales or rhonchi. HEART: Regular rate and rhythm without murmurs ABDOMEN: Soft, nontender, normoactive bowel sounds. No guarding, no rebound. No masses appreciated. EXTREMITIES: Normal range of motion, no pitting or edema. No cyanosis. NEUROLOGICAL: No focal neurological deficits. Moves all extremities spontaneously and on command. PSYCH: Normal mood, normal affect. SKIN: Warm, Dry, normal turgor, no rashes or lesions noted. Course - Re-evaluation Re-evalutation: 01/21/17 19:55 Presentation of chest pain in an otherwise well appearing patient. Low clinical suspicion for ACS given clinical history, exam, EKG without ST elevations or depressions, and negative initial troponin. Her clinical history does not sound at all cardiac in origin she notes only chest pain with eating and associates this with her hiatal hernia and reflux. She has been out of her omeprazole for 3 days and her symptoms did start 1 day after she discontinued this medication. PE also seems unlikely given clinical history, absence of tachycardia or dyspnea. Well's score is 0. CXR without evidence of pneumothorax or pneumonia. No widened mediastinum. Aortic dissection also seems unlikely given history, symmetric pulses, CXR, and vitals. Patient has no chest pain while here in the emergency department. Will restart her omeprazole. Patient was also noted to be wheezing here in the emergency department is currently out of her albuterol inhalers. We have provided this year as well as a single dose of dexamethasone. At this time will discharge with return precautions and follow-up recommendations. Verbal discharge instructions given a the bedside and opportunity for questions given. Medication warnings reviewed. Patient is in agreement with this plan and has verbalized understanding of return precautions and the need for primary care follow-up in the next 24-72 hours. - Vital Signs Vital signs: Temp Pulse Resp BP Pulse Ox 98.5 F 93 16 122/59 L 94 01/21/17 18:54 01/21/17 18:54 01/21/17 20:01 01/21/17 20:01 01/21/17 20:01 - Laboratory Result Diagrams: 01/21/17 19:00 01/21/17 19:00 Laboratory results interpreted by me: 01/21/17 01/21/17 19:00 19:00 Hgb 11.7 L Hct 34.5 L RDW 14.5 H Seg Neutrophils % 40.2 L Eosinophils % 8.2 H BUN 23 H Est GFR (Non-Af Amer) 58 L Glucose 194 H - Diagnostic Test Radiology reviewed: Image reviewed, Reports reviewed Radiology results interpreted by me: 01/21/17 20:10 Chest x-ray: No acute infiltrate or pneumothorax - EKG Interpretation by Me Additional EKG results interpreted by me: 01/21/17 20:11 Normal sinus rhythm. Rate 93. No ST elevations or depressions. QTC is 463. Discharge - Discharge Clinical Impression: Chest discomfort, Odynophagia Condition: Good Disposition: HOME, SELF-CARE Additional Instructions: Your being restarted on your omeprazole. Please take as directed. Return if you have worsening of your pain, pass out, become short of breath, vomit blood, or have any other symptoms that are worrisome to you. Please follow-up with your primary care doctor at your earliest ability. Prescriptions: Omeprazole 40 mg PO DAILY #30 capsule.
[2017-01-21] MEDS ORDERED: DEXAMETHASONE 4 MG TABLET PO ONE (20:10)
[2017-01-21 20:28] VITALS: BP 122/59
--- NOTE | 2017-01-23 00:04 | EKG REPORT ---
SEVERITY:- OTHERWISE NORMAL ECG - SINUS RHYTHM BORDERLINE LEFT AXIS DEVIATION : Confirmed by: Michael Goodrich 23-Jan-2017 00:03:36
== END 2017-01-21 20:42 | disposition home or self-care (01) ==
LOC: ER 18:36
DX: R07.9 Chest pain, unspecified (principal); R13.10 Dysphagia, unspecified; I10 Essential (primary) hypertension; E78.5 Hyperlipidemia, unspecified; R10.13 Epigastric pain
CPT/HCPCS: 93005; 99285; 36415; 85025; 80048; 84484; 71010; 93010; J3490

== ENCOUNTER → 2017-05-03 | Outpatient (CLI) | payer MEDICARE ==
--- NOTE | 2017-05-03 11:56 | WOMENS IMAGING REPORT ---
EXAM DESCRIPTION: BILAT SCREENING MAMMO W/CAD COMPLETED DATE/TIME: 05/03/2017 11:36 am REASON FOR STUDY: SCREENING MAMMO Z12.31 ENCNTR SCREEN MAMMOGRAM FOR MALIGNANT NEOPLASM OF JEANINE COMPARISON: None. TECHNIQUE: Standard craniocaudal and mediolateral oblique views of each breast recorded using digita l acquisition. LIMITATIONS: None. FINDINGS: No masses, calcifications or architectural distortion. No areas of suspicion. Read with the assistance of CAD. .[facility] - R2 Cenova Version 1.3 .[facility] - R2 Cenova Version 1.3 .[facility] - R2 Cenova Version 2.4 .[facility] - R2 Cenova Version 2.4 .[facility] - R2 Spa Manager Version 9.2 IMPRESSION: NORMAL MAMMOGRAM. BIRADS 1. BREAST DENSITY: b. There are scattered areas of fibroglandular density. BIRAD: 1 NEGATIVE RECOMMENDATION: ROUTINE SCREENING COMMENT: The patient has been notified of the results by letter per [facility] requirements. Additional no tification policies are in place for contacting patient with suspicious or incomplete findings. Quality ID #[id number]: The [employer] recommends an annual screening mammogram for women aged 40 years or over. This facility utilizes a reminder system to ensure that all patients receive reminder letters, and/or direct phone calls for appointments. This includes reminders for routine scr eening mammograms, diagnostic mammograms, or other Breast Imaging Interventions when appropriate. Th is patient will be placed in the appropriate reminder system. The [employer] (ACR) has developed recommendations for screening MRI of the breast s in certain patient populations, to be used in conjunction with mammography. Breast MRI surveillanc e may be appropriate for women with more than 20% lifetime risk of developing breast cancer as deter mined by genetic testing, significant family history of the disease, or history of mantle radiation f or Hodgkins Disease. ACR Practice Guidelines 2008. TECHNICAL DOCUMENTATION: FINDING NUMBER: (1) ASSESSMENT: (1) JOB ID: [id number] [employer]- All Rights Reserved
== END ==
LOC: WI 11:11
PROVIDERS: ATTEND Registered Nurse
DX: Z12.31 Encounter for screening mammogram for malignant neoplasm of breast (principal)
CPT/HCPCS: 77067; G0202

== ENCOUNTER 2018-07-11 13:26 | Emergency (ER) | payer MEDICARE ==
--- NOTE | 2018-07-11 15:09 | ER Document Report ---
ED Medical Screen (RME) - General Chief Complaint: Flank Pain Stated Complaint: BACK PAIN Time Seen by Provider: 07/11/18 14:53 Primary Care Provider: AMARIS DIEHL NP [Primary Care Provider] - Follow up as needed Mode of Arrival: Ambulatory Information source: Patient Notes: 68-year-old female with history of diabetes and chronic back pain presents emergency department with complaints of right flank pain and lower abdominal pain for the last 3 days. She states that it is intermittent in nature. She denies any radiation of her pain. She denies any alleviating factors. Patient denies any exacerbating factors. Patient states that her current pain does not feel like her chronic back pain. She goes to pain management and is on pain medications. She states that nothing is helping with her pain. Abdominal pain is located in the lower abdomen. Dull aching sensation. No radiation. She denies any nausea, vomiting, diarrhea, dysuria, hematuria, increased urgency, increased frequency. Patient states that she is having vaginal itching and constipation. I have greeted and performed a rapid initial assessment of this patient. A comprehensive ED assessment and evaluation of the patient, analysis of test results and completion of the medical decision making process will be conducted by additional ED providers. PHYSICAL EXAMINATION: GENERAL: Well-appearing, well-nourished and in no acute distress. HEAD: Atraumatic, normocephalic. EYES: Pupils equal round extraocular movements intact, conjunctiva are normal. ENT: Nares patent NECK: Normal range of motion LUNGS: No respiratory distress Musculoskeletal: Normal range of motion, R paralumbar pinpoint tenderness to palpation. No midline tenderness. No CVA tenderness. TRAVEL OUTSIDE OF THE [place] IN LAST 30 DAYS: No - Related Data Allergies/Adverse Reactions: No Known Allergies Allergy (Verified 04/04/17 01:48 EDT) Past Medical History - Social History Chew tobacco use (# tins/day): No Frequency of alcohol use: None Drug Abuse: None - Past Medical History Cardiac Medical History: Reports: Hx Hypercholesterolemia, Hx Hypertension Pulmonary Medical History: Reports: Hx Pneumonia Endocrine Medical History: Reports: Hx Diabetes Mellitus Type 2 Renal/ Medical History: Denies: Hx Peritoneal Dialysis Psychiatric Medical History: Reports: Hx Depression Past Surgical History: Reports: Hx Hysterectomy, Hx Orthopedic Surgery - left rotater cuff repainr - Immunizations Hx Diphtheria, Pertussis, Tetanus Vaccination: Yes Physical Exam - Vital signs Vitals: Temp Pulse Resp BP Pulse Ox 97.9 F 85 18 129/103 H 96 07/11/18 13:32 07/11/18 13:32 07/11/18 13:32 07/11/18 13:32 07/11/18 13:32 Course - Vital Signs Vital signs: Temp Pulse Resp BP Pulse Ox 97.9 F 85 18 129/103 H 96 07/11/18 13:32 07/11/18 13:32 07/11/18 13:32 07/11/18 13:32 07/11/18 13:32 Doctor's Discharge - Discharge Referrals: AMARIS DIEHL, [facility] [Primary Care Provider] - Follow up as needed
[2018-07-11 15:47] LABS: ABSOLUTE BASOPHILS # (AUTO) 0.1 10^3/uL (0.0-0.2); ABSOLUTE EOSINOPHILS # (AUTO) 0.1 10^3/uL (0.0-0.6); ABSOLUTE LYMPHOCYTES (AUTO) 3.5 10^3/uL (0.5-4.7); ABSOLUTE MONOCYTES (AUTO) 0.8 10^3/uL (0.1-1.4); ABSOLUTE NEUT (AUTO) 6.2 10^3/uL (1.7-8.2); BASOPHILS % (AUTO) 0.8 % (0-2); EOSINOPHILS % (AUTO) 0.8 % (0-6); HEMATOCRIT 37.6 % (36.0-47.0); LYMPHOCYTES % (AUTO) 32.4 % (13-45); MEAN CORPUSCULAR HEMOGLOBIN 30.6 pg (27.0-33.4); MEAN CORPUSCULAR HGB CONC 34.7 g/dL (32.0-36.0); MEAN CORPUSCULAR VOLUME 88 fl (80-97); MONOCYTES % (AUTO) 7.5 % (3-13); PLATELET COUNT 316 10^3/uL (150-450); RED BLOOD COUNT 4.26 10^6/uL (3.72-5.28); RED CELL DISTRIBUTION WIDTH 13.2 % (11.5-14.0); SEGMENTED NEUTROPHILS % (AUTO) 58.5 % (42-78); TOTAL CELLS COUNTED % (AUTO) 100 %; WHITE BLOOD COUNT 10.7 10^3/uL (4.0-10.5)
[2018-07-11 15:54] LABS: APPEARANCE,URINE CLEAR; BILIRUBIN,URINE NEGATIVE (NEGATIVE); COLOR,URINE YELLOW; GLUCOSE, URINE NEGATIVE (NEGATIVE); KETONES,URINE NEGATIVE (NEGATIVE); LEUKOCYTE ESTERASE,URINE NEGATIVE (NEGATIVE); NITRITE,URINE NEGATIVE (NEGATIVE); PROTEIN,URINE NEGATIVE (NEGATIVE); URINE SPECIFIC GRAVITY 1.016; UROBILINOGEN,URINE NEGATIVE mg/dL (<2.0)
[2018-07-11 16:15] LABS: ALANINE AMINOTRANSFERASE 17 U/L (9-52); ALBUMIN 4.3 g/dL (3.5-5.0); ALKALINE PHOSPHATASE 72 U/L (38-126); ANION GAP 13 (5-19); ASPARTATE AMINO TRANSFERASE 17 U/L (14-36); BILIRUBIN,DIRECT 0.3 mg/dL (0.0-0.4); BILIRUBIN,TOTAL 0.3 mg/dL (0.2-1.3); BLOOD UREA NITROGEN 24 mg/dL (7-20); CALCIUM 9.3 mg/dL (8.4-10.2); CARBON DIOXIDE 25 mmol/L (22-30); CHLORIDE 98 mmol/L (98-107); GLUCOSE 122 mg/dL (75-110); LIPASE 47.5 U/L (23-300); POTASSIUM 3.9 mmol/L (3.6-5.0); SODIUM 136.2 mmol/L (137-145); TOTAL PROTEIN 6.9 g/dL (6.3-8.2)
--- NOTE | 2018-07-11 16:38 | ER Document Report ---
ED General - General Chief Complaint: Flank Pain Stated Complaint: BACK PAIN Time Seen by Provider: 07/11/18 14:53 Primary Care Provider: AMARIS DIEHL NP [Primary Care Provider] - Follow up in 3-5 days JU COFFMAN MD [ACTIVE STAFF] - Follow up as needed (surgery ) Mode of Arrival: Ambulatory Notes: Patient is a 68-year-old female that presents to the emergency department for [facility] complaint of right upper quadrant and right flank pain. Patient reports she is been having this pain for about a week and a half, it comes and goes, she rates the pain currently as a 6 out of 10 describes as a sharp pain, that is constant in nature at the time. She reports having history of gallstones in the past as well as kidney stones but these are all remotely, and nothing recent. She admits to having some urinary frequency, but denies having any nausea or vomiting associated with this. She has had somewhat of a dry cough and a sore throat as well. But these are not bothering her that much today. Her main complaint is the right flank and right upper quadrant abdominal pain. She denies having any dysuria, hematuria, constipation or diarrhea. Denies any fevers, chills, night sweats. Past Medical History: Kidney stones, diabetes mellitus, osteoarthritis Past Surgical History: Hysterectomy Social History: Admits to smoking cigarettes, denies alcohol or drug use. Family History: Reviewed and noncontributory for presenting illness Allergies: Reviewed, see documented allergy list. REVIEW OF SYSTEMS: Other than noted above, the 12 point review of systems was reviewed with the patient and were negative, all pertinent findings are included in the HPI. PHYSICAL EXAMINATION: Vital signs reviewed, nursing noted reviewed. GENERAL: Elderly female, in no acute distress HEAD: Atraumatic, normocephalic. EYES: Eyes appear normal, extraocular movements intact, sclera anicteric, conjunctiva are normal. ENT: nares patent, oropharynx clear without exudates. Moist mucous membranes. NECK: Normal range of motion, supple without lymphadenopathy LUNGS: Breath sounds clear to auscultation bilaterally and equal. No wheezes rales or rhonchi. HEART: Regular rate and rhythm without murmurs ABDOMEN: Soft, right upper quadrant tenderness with palpation, with mild right C VA tenderness as well, normoactive bowel sounds. No rebound, guarding, or rigidity. No masses appreciated. EXTREMITIES: Nontender, good range of motion, no pitting or edema. NEUROLOGICAL: No focal neurological deficits. Moves all extremities spontaneously Motor and sensory grossly intact on exam. PSYCH: Normal mood, normal affect. SKIN: Warm, Dry, normal turgor, no rashes or lesions noted on exposed skin TRAVEL OUTSIDE OF THE [place] IN LAST 30 DAYS: No - Related Data Allergies/Adverse Reactions: No Known Allergies Allergy (Verified 04/04/17 01:48 EDT) Past Medical History - General Information source: Patient - Social History Smoking Status: Current Every Day Smoker Chew tobacco use (# tins/day): No Frequency of alcohol use: None Drug Abuse: None Family History: Reviewed & Not Pertinent Patient has suicidal ideation: No Patient has homicidal ideation: No - Past Medical History Cardiac Medical History: Reports: Hx Hypercholesterolemia, Hx Hypertension Pulmonary Medical History: Reports: Hx Pneumonia Endocrine Medical History: Reports: Hx Diabetes Mellitus Type 2 Renal/ Medical History: Denies: Hx Peritoneal Dialysis Psychiatric Medical History: Reports: Hx Depression Past Surgical History: Reports: Hx Hysterectomy, Hx Orthopedic Surgery - left rotater cuff repainr - Immunizations Hx Diphtheria, Pertussis, Tetanus Vaccination: Yes Hx Pneumococcal Vaccination: 07/01/12 Physical Exam - Vital signs Vitals: Temp Pulse Resp BP Pulse Ox 97.9 F 85 18 129/103 H 96 07/11/18 13:32 07/11/18 13:32 07/11/18 13:32 07/11/18 13:32 07/11/18 13:32 Course - Re-evaluation Re-evalutation: Patient seen and examined vital signs reviewed. Laboratory data and imaging were ordered as appropriate for the patient's presenting symptoms and complaint, with consideration of any critical or life threatening conditions that may be associated with their obtained history and exam as noted above. Patient was treated with IV morphine and Zofran Results were reviewed when available and demonstrated very mild leukocytosis, otherwise unremarkable workup, negative UA, negative right upper quadrant ultrasound The patient was re-evaluated and was stable Evaluation was most consistent with right upper quadrant abdominal pain and right flank pain, without clear cause, advised follow-up with primary care Results were discussed with the patient at this point, after careful c onsideration I feel that that patient can be discharged from the emergency department, the patient was educated treatments and reasons to return to the emergency department based on their presumed diagnosis as noted above, they were advised to followup with a primary care physician in 2-3 days. Patient was agreeable to plan of care. *Note is created using voice recognition software and may contain spelling, syntax or grammatical errors. Laboratory 07/11/18 07/11/18 07/11/18 15:30 15:30 15:30 WBC 10.7 H RBC 4.26 Hgb 13.0 Hct 37.6 MCV 88 MCH 30.6 MCHC 34.7 RDW 13.2 Plt Count 316 Seg Neutrophils % 58.5 Lymphocytes % 32.4 Monocytes % 7.5 Eosinophils % 0.8 Basophils % 0.8 Absolute Neutrophils 6.2 Absolute Lymphocytes 3.5 Absolute Monocytes 0.8 Absolute Eosinophils 0.1 Absolute Basophils 0.1 Sodium 136.2 L Potassium 3.9 Chloride 98 Carbon Dioxide 25 Anion Gap 13 BUN 24 H Creatinine 0.82 Est GFR ( Amer) > 60 Est GFR (Non-Af Amer) > 60 Glucose 122 H Calcium 9.3 Total Bilirubin 0.3 Direct Bilirubin 0.3 Neonat Total Bilirubin Not Reportable Neonat Direct Bilirubin Not Reportable Neonat Indirect Bili Not Reportable AST 17 ALT 17 Alkaline Phosphatase 72 Total Protein 6.9 Albumin 4.3 Lipase 47.5 Urine Color YELLOW Urine Appearance CLEAR Urine pH 5.0 Ur Specific [place] 1.016 Urine Protein NEGATIVE Urine Glucose (UA) NEGATIVE Urine Ketones NEGATIVE Urine Blood NEGATIVE Urine Nitrite NEGATIVE Urine Bilirubin NEGATIVE Urine Urobilinogen NEGATIVE Ur Leukocyte Esterase NEGATIVE Urine WBC (Auto) 1 Urine RBC (Auto) 1 U Hyaline Cast (Auto) 31 Squamous Epi Cells Auto 2 Urine Mucus (Auto) RARE Urine Ascorbic Acid NEGATIVE Abdomen Ultrasound 07/11/18 16:49 IMPRESSION: NORMAL RIGHT UPPER QUADRANT ULTRASOUND. - Vital Signs Vital signs: Temp Pulse Resp BP Pulse Ox 98.0 F 85 18 129/103 H 96 07/11/18 17:13 07/11/18 13:32 07/11/18 13:32 07/11/18 13:32 07/11/18 13:32 - Laboratory Result Diagrams: 07/11/18 15:30 07/11/18 15:30 Laboratory results interpreted by me: 07/11/18 07/11/18 15:30 15:30 WBC 10.7 H Sodium 136.2 L BUN 24 H Glucose 122 H Discharge - Discharge Clinical Impression: Abdominal pain Qualifiers: Abdominal location: unspecified location Qualified Code(s): R10.9 - Unspecified abdominal pain Condition: Stable Disposition: HOME, SELF-CARE Instructions: Abdominal Pain ([facility]) Additional Instructions: Please follow-up with your primary care physician, I would also advised follow- up with a general surgeon if you have persistent right upper abdominal pain, as you may have gallbladder disease, that is causing to have pain depending what you eat, therefore I would avoid any dairy products, such as milk, cheese, yogurt, fatty foods, such as [place] fries or hamburgers, fried foods that could contain a higher fat content that would flare up your gallbladder, there are further tests taken be done as an outpatient that are ordered by the surgeon if this is needed. Prescriptions: Dicyclomine HCl [Bentyl 20 mg Tablet] 20 mg PO TID PRN #30 tablet PRN Reason: Abdominal Cramping Referrals: AMARIS DIEHL NP [Primary Care Provider] - Follow up in 3-5 days JU COFFMAN MD [ACTIVE STAFF] - Follow up as needed (surgery )
[2018-07-11] MEDS ORDERED: ONDANSETRON HCL INJ/PF 4 MG/2 ML SDV IV ONE (18:35)
[2018-07-11] MEDS ORDERED: MORPHINE SULFATE 10 MG/ML INJ IV ONE (18:35)
--- NOTE | 2018-07-11 19:16 | RADIOLOGY REPORT (SQ) ---
EXAM DESCRIPTION: U/S ABDOMEN LIMITED W/O DOP COMPLETED DATE/TIME: 07/11/2018 6:27 pm REASON FOR STUDY: ruq pain COMPARISON: CT abdomen pelvis 09/14/2016 TECHNIQUE: Dynamic and static grayscale images acquired of the abdomen and recorded on PACS. Josieo margret selected color Doppler and spectral images recorded. LIMITATIONS: None. FINDINGS: PANCREAS: Midline pancreas unremarkable LIVER: No masses. Echotexture normal. LIVER VASCULATURE: Normal directional flow of the main portal vein and hepatic veins. GALLBLADDER: No stones. Normal wall thickness. No pericholecystic fluid. ULTRASOUND-DETECTED LOPEZ'S SIGN: Negative. INTRAHEPATIC DUCTS AND COMMON DUCT: No intrahepatic biliary ductal dilatation. Common bile duct at t he irene hepatis 9 mm diameter, similar compared to CT from 09/14/2016. INFERIOR VENA CAVA: Normal flow. AORTA: No aneurysm. RIGHT KIDNEY: Normal size. Normal echogenicity. No solid or suspicious masses. No hydronephrosis. No calcifications. PERITONEAL AND RIGHT PLEURAL SPACE: No ascites or effusions. OTHER: No other significant findings. IMPRESSION: NORMAL RIGHT UPPER QUADRANT ULTRASOUND. TECHNICAL DOCUMENTATION: JOB ID: [id number] [employer]- All Rights Reserved Reading location - IP/workstation name: [email or web address]
[2018-07-11 19:44] VITALS: BP 137/68
== END 2018-07-11 19:47 | disposition home or self-care (01) ==
LOC: ER 13:26
DX: R10.9 Unspecified abdominal pain (principal); M54.9 Dorsalgia, unspecified; R10.11 Right upper quadrant pain; R35.0 Frequency of micturition; R05 Cough; J02.9 Acute pharyngitis, unspecified; F17.210 Nicotine dependence, cigarettes, uncomplicated; I10 Essential (primary) hypertension; E11.9 Type 2 diabetes mellitus without complications
CPT/HCPCS: 99284; 96374; 96375; 36415; 83690; 85025; 80053; 81001; 76705; J2270; J2405

== ENCOUNTER → 2018-07-13 | Outpatient (CLI) | payer MEDICARE ==
--- NOTE | 2018-07-13 15:19 | WOMENS IMAGING REPORT ---
EXAM DESCRIPTION: BILAT SCREENING MAMMO W/CAD COMPLETED DATE/TIME: 07/13/2018 2:24 pm REASON FOR STUDY: Z12.31 SCREENING MAMMO Z12.31 ENCNTR SCREEN MAMMOGRAM FOR MALIGNANT NEOPLASM OF B RE COMPARISON: 05/03/2017 TECHNIQUE: Standard craniocaudal and mediolateral oblique views of each breast recorded using [employer] Systemsa l acquisition. LIMITATIONS: None. FINDINGS: No masses, calcifications or architectural distortion. No areas of suspicion. Read with the assistance of CAD. .[facility] - R2 Cenova Version 1.3 .[facility] - R2 Cenova Version 2.1 .[facility] - R2 Cenova Version 2.4 .[facility] [place] R2 Cenova Version 2.4 .[facility] - R2 Safe Technician Version 9.2 IMPRESSION: NORMAL MAMMOGRAM. BIRADS 1. BREAST DENSITY: c. The breasts are heterogeneously dense, which may obscure small masses. BIRAD: 1 NEGATIVE RECOMMENDATION: ROUTINE SCREENING COMMENT: The patient has been notified of the results by letter per SA requirements. Additional no tification policies are in place for contacting patient with suspicious or incomplete findings. Quality ID #[id number]: The [employer] recommends an annual screening mammogram for women aged 40 years or over. This facility utilizes a reminder system to ensure that all patients receive reminder letters, and/or direct phone calls for appointments. This includes reminders for routine scr eening mammograms, diagnostic mammograms, or other Breast Imaging Interventions when appropriate. Th is patient will be placed in the appropriate reminder system. The [employer] (ACR) has developed recommendations for screening MRI of the breast s in certain patient populations, to be used in conjunction with mammography. Breast MRI surveillanc e may be appropriate for women with more than 20% lifetime risk of developing breast cancer as deter mined by genetic testing, significant family history of the disease, or history of mantle radiation f or Hodgkins Disease. ACR Practice Guidelines 2008. TECHNICAL DOCUMENTATION: FINDING NUMBER: (1) ASSESSMENT: (1) JOB ID: [id number] [employer]- All Rights Reserved Reading location - IP/workstation name: [email or web address]
== END ==
LOC: WI 14:05
PROVIDERS: ATTEND Registered Nurse
DX: Z12.31 Encounter for screening mammogram for malignant neoplasm of breast (principal)
CPT/HCPCS: 77067

== ENCOUNTER 2018-12-22 14:20 | Emergency (ER) | payer MEDICARE ==
[2018-12-22 15:01] LABS: ABSOLUTE LYMPHOCYTES (AUTO) 1.5 10^3/uL (0.5-4.7); ABSOLUTE MONOCYTES (AUTO) 0.4 10^3/uL (0.1-1.4); ABSOLUTE NEUT (AUTO) 4.3 10^3/uL (1.7-8.2); BASOPHILS % (AUTO) 0.6 % (0-2); HEMOGLOBIN 12.6 g/dL (12.0-15.5); LYMPHOCYTES % (AUTO) 23.3 % (13-45); MEAN CORPUSCULAR HEMOGLOBIN 30.3 pg (27.0-33.4); MEAN CORPUSCULAR VOLUME 87 fl (80-97); MONOCYTES % (AUTO) 6.7 % (3-13); PLATELET COUNT 310 10^3/uL (150-450); RED BLOOD COUNT 4.15 10^6/uL (3.72-5.28); RED CELL DISTRIBUTION WIDTH 13.4 % (11.5-14.0); SEGMENTED NEUTROPHILS % (AUTO) 69.4 % (42-78); TOTAL CELLS COUNTED % (AUTO) 100 %; WHITE BLOOD COUNT 6.2 10^3/uL (4.0-10.5)
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
[2018-12-22 15:11] LABS: APPEARANCE,URINE SLIGHTLY-CLOUDY; BILIRUBIN,URINE NEGATIVE (NEGATIVE); COLOR,URINE AMBER; GLUCOSE, URINE 50 mg/dL (NEGATIVE); KETONES,URINE 80 mg/dL (NEGATIVE); LEUKOCYTE ESTERASE,URINE NEGATIVE (NEGATIVE); NITRITE,URINE NEGATIVE (NEGATIVE); PROTEIN,URINE 100 mg/dL (NEGATIVE); URINE SPECIFIC GRAVITY 1.023
[2018-12-22 15:23] LABS: ALANINE AMINOTRANSFERASE 26 U/L (9-52); ALBUMIN 4.7 g/dL (3.5-5.0); ALKALINE PHOSPHATASE 76 U/L (38-126); ANION GAP 15 (5-19); ASPARTATE AMINO TRANSFERASE 36 U/L (14-36); BILIRUBIN,DIRECT 0.5 mg/dL (0.0-0.4); BILIRUBIN,TOTAL 0.7 mg/dL (0.2-1.3); BLOOD UREA NITROGEN 28 mg/dL (7-20); CALCIUM 9.9 mg/dL (8.4-10.2); CARBON DIOXIDE 28 mmol/L (22-30); CHLORIDE 97 mmol/L (98-107); GLUCOSE 197 mg/dL (75-110); POTASSIUM 3.2 mmol/L (3.6-5.0); TOTAL PROTEIN 7.8 g/dL (6.3-8.2)
[2018-12-22 15:24] LABS: URINE AMPHETAMINES SCREEN NEGATIVE; URINE BARBITURATES SCREEN NEGATIVE; URINE BENZODIAZEPINES SCREEN UNCONFIRMED POSITIVE; URINE COCAINE SCREEN NEGATIVE; URINE MARIJUANA (THC) SCREEN NEGATIVE; URINE METHADONE SCREEN NEGATIVE; URINE PHENCYCLIDINE SCREEN NEGATIVE
[2018-12-22 15:25] LABS: ALCOHOL < 10 mg/dL (NONE DETECTED)
--- NOTE | 2018-12-22 15:48 | RADIOLOGY REPORT (SQ) ---
EXAM DESCRIPTION: CT HEAD WITHOUT COMPLETED DATE/TIME: 12/22/2018 3:38 pm REASON FOR STUDY: AMS COMPARISON: 09/14/2016 TECHNIQUE: Axial images acquired through the brain without intravenous contrast. Images reviewed wi th bone, brain and subdural windows. Additional sagittal and coronal reconstructions were generated. Images stored on PACS. All CT scanners at this facility use dose modulation, iterative reconstruction, and/or weight based d osing when appropriate to reduce radiation dose to as low as reasonably achievable (ALARA). [facility]: Dose Right [facility]: CareDose [facility]: Dose Right [facility]: Teradose 4D [facility]: Smart Technologies RADIATION DOSE: CT Rad equipment meets quality standard of care and radiation dose reduction techniq ues were employed. CTDIvol: 53.2 mGy. DLP: 1097 mGy-cm. mGy. LIMITATIONS: None. FINDINGS: VENTRICLES: Normal size and contour. CEREBRUM: No masses. No hemorrhage. No midline shift. No evidence for acute infarction. Normal gra y/white matter differentiation. No areas of low density in the white matter. CEREBELLUM: No masses. No hemorrhage. No alteration of density. No evidence for acute infarction. EXTRAAXIAL SPACES: No fluid collections. No masses. ORBITS AND GLOBE: No intra- or extraconal masses. Normal contour of globe without masses. CALVARIUM: No fracture. PARANASAL SINUSES: No fluid or mucosal thickening. SOFT TISSUES: No mass or hematoma. OTHER: No other significant finding. IMPRESSION: NORMAL BRAIN CT WITHOUT CONTRAST. EVIDENCE OF ACUTE STROKE: NO. COMMENT: Quality ID # [id number]: Final reports with documentation of one or more dose reduction techniques (e.g., Automated exposure control, adjustment of the mA and/or kV according to patient size, use of iterative reconstruction technique) TECHNICAL DOCUMENTATION: JOB ID: [id number] [employer]- All Rights Reserved Reading location - IP/workstation name: [email or web address]
[2018-12-22] MEDS ORDERED: POTASSIUM CHLORIDE 10 MEQ CAPSULE.ER PO ONE (16:37)
--- NOTE | 2018-12-22 17:06 | PSYCHOLOGICAL NOTE ---
Psych Note - Psych Note Date seen by psych provider: 12/22/18 Psych Note: Patient is a 68-year-old female with a history of anxiety/depression, back pain, hypertension, GERD, type 2 diabetes who presents by EMS for altered mental status. clinicians Impression\plan: Patient is recommended for IVC petition for overnight mental health observation. Patient is presenting manic with flight of ideas and difficulty in organized linear conversation. Patient will be reevaluated. Dr. Seymour was consulted to care management of this patient; attending physicians in agreement with recommendations and disposition.
--- NOTE | 2018-12-22 20:35 | EKG REPORT ---
SEVERITY:- ABNORMAL ECG - SINUS RHYTHM BORDERLINE LEFT AXIS DEVIATION : Confirmed by: Michael Goodrich 22-Dec-2018 20:34:53
[2018-12-22] MEDS ORDERED: NORMAL SALINE 1000 ML 1,000 ML IV ONE (22:09)
[2018-12-23] MEDS ORDERED: OLANZAPINE INJ/PF 10 MG SDV IM ONE ×2 (02:30→04:04)
[2018-12-23] MEDS ORDERED: BENZTROPINE MESYLATE INJ 2 MG/2 ML AMPULE IM SCH (02:30)
[2018-12-23] MEDS ORDERED: BENZTROPINE MESYLATE INJ 2 MG/2 ML AMPULE IM ONE (02:52)
[2018-12-23] MEDS ORDERED: POTASSIUM CHLORIDE 10 MEQ CAPSULE.ER PO ONE (09:32)
--- NOTE | 2018-12-23 11:04 | ER Document Report ---
Doctor's Note Notes: 12/23/18 11:03 Rounds: Chart reviewed and patient interviewed. Patient is pleasant and answers questions. However, she will not take potassium pills which have ordered for her. Argumentative. Patient came in with a reported manic condition and has not slept for 3 days. She suffers from depression and anxiety. Vital signs were all normal. Lab studies were normal except for potassium of 3.2. She was given 40 mEq of potassium earlier this morning and I was going to repeat that but the patient refuses to take it now. Patient appears to be medically stable for transfer or discharge. Dragan Diaz MD
[2018-12-23] MEDS: CLONIDINE 0.1 MG/24 HR PATCH.TDWK TD SCH (21:56)
[2018-12-24] MEDS ORDERED: ONDANSETRON 4 MG TAB.RAPDIS PO ONE (03:35)
[2018-12-24] MEDS ORDERED: NICOTINE 14 MG/24 HR PATCH.TD24 TD ONE (03:35)
--- NOTE | 2018-12-24 09:18 | ER Document Report ---
Doctor's Note Notes: 12/24/18 09:17 68-year-old female here for altered mental status and decreased sleeping status with a short pill count on her Xanax. Vital signs are stable. Dehydration with increased urine ketones. Patient currently denies any pain. Unremarkable CT scan of the head. Awaiting psychiatric disposition. Patient is currently calm and cooperative at this time. Patient attempted to elope on previous providers evaluation requiring medications to calm the patient.
[2018-12-24 18:44] LABS: URINE AMPHETAMINES SCREEN NEGATIVE; URINE BARBITURATES SCREEN NEGATIVE; URINE BENZODIAZEPINES SCREEN NEGATIVE; URINE COCAINE SCREEN NEGATIVE; URINE MARIJUANA (THC) SCREEN NEGATIVE; URINE METHADONE SCREEN NEGATIVE; URINE PHENCYCLIDINE SCREEN NEGATIVE
[2018-12-24] MEDS: CLONIDINE 0.1 MG/24 HR PATCH.TDWK TD SCH (21:09)
[2018-12-25] MEDS ORDERED: ACETAMINOPHEN 325 MG TABLET ONE (01:35)
[2018-12-25] MEDS ORDERED: ACETAMINOPHEN 325 MG TABLET PO ONE ×2 (01:42→01:43)
--- NOTE | 2018-12-25 09:22 | ER Document Report ---
Doctor's Note Notes: 12/25/18 09:21 68-year-old female here for altered mental status and decreased sleeping status with a short pill count on her Xanax. Vital signs are stable. Patient is currently calm and cooperative at this time. Oriented x4. Patient has not had any erratic behavior in the last 24 hours.
[2018-12-25] MEDS: RISPERIDONE 0.25 MG TABLET PO SCH ×2 (11:11→17:10)
[2018-12-25] MEDS: CLONIDINE 0.1 MG/24 HR PATCH.TDWK TD SCH (21:08)
[2018-12-25] MEDS ORDERED: HYDROCHLOROTHIAZIDE 12.5 MG TABLET PO SCH (21:30)
[2018-12-25] MEDS ORDERED: LOSARTAN POTASSIUM 50 MG TABLET PO SCH (21:30)
[2018-12-25] MEDS: ONDANSETRON 4 MG TAB.RAPDIS PO PRN (21:48)
[2018-12-25] MEDS ORDERED: METFORMIN HCL 500 MG TABLET PO SCH (22:00)
[2018-12-26] MEDS: HYDROCHLOROTHIAZIDE 12.5 MG TABLET PO SCH (10:03)
[2018-12-26] MEDS: RISPERIDONE 0.25 MG TABLET PO SCH ×2 (10:03→18:09)
[2018-12-26] MEDS: METFORMIN HCL 500 MG TABLET PO SCH (10:03)
[2018-12-26] MEDS: LOSARTAN POTASSIUM 50 MG TABLET PO SCH (10:04)
--- NOTE | 2018-12-26 11:19 | ER Document Report ---
Doctor's Note Notes: 12/26/18 11:16 I have reviewed the current records on the patient. I did review her pharmacy records and found that she has been taking oxycodone 5 mg 4 times daily in excess of 1 year, Xanax 1 mg twice daily, gabapentin, Elavil, baclofen, and Zanaflex. Some of her manic behavior may be related to drug withdrawal. The nurse came and asked me for a restraining order. The patient was flopping about on the bed and at risk of injury. Violent restraint order was placed. The psychological back-up will be consulted again today as they may not have been aware of all the medications this patient was taking prior to coming in here 4 days ago. There was some concern that the urinalysis on arrival may have suggested a UTI. It was quite concentrated with large ketones, but there were several WBCs and RBCs. A repeat UA to be obtained by catheterization was ordered.
[2018-12-26 12:57] LABS: APPEARANCE,URINE SLIGHTLY-CLOUDY; BILIRUBIN,URINE NEGATIVE (NEGATIVE); COLOR,URINE YELLOW; GLUCOSE, URINE >=500 mg/dL (NEGATIVE); KETONES,URINE 80 mg/dL (NEGATIVE); LEUKOCYTE ESTERASE,URINE NEGATIVE (NEGATIVE); NITRITE,URINE NEGATIVE (NEGATIVE); PROTEIN,URINE >=500 mg/dL (NEGATIVE); UROBILINOGEN,URINE NEGATIVE mg/dL (<2.0)
[2018-12-26] MEDS: DIVALPROEX SODIUM 250 MG TABLET.DR PO SCH ×2 (14:20→18:08)
[2018-12-26] MEDS: BUSPIRONE HCL 10 MG TABLET PO SCH ×2 (14:20→18:08)
--- NOTE | 2018-12-26 18:55 | ER Document Report ---
Doctor's Note Notes: 12/26/18 18:55 A catheterized urine was obtained showing the patient continues to have some dehydration, but does not suggest a urinary tract infection. Medication changes were to add Depakote 250 mg twice daily, and BuSpar 5 mg twice daily. 12/27/18 09:47 This morning the patient is much more calm and not requiring restraints. She continues with a flight of ideas. She still has some agitation. She does state that the bed rolls her over and over, she states she wants a lump on the side of her hip x-rayed because she hit it against the wall 9 times. She is indicating her greater tuberosity of the hip. She states that I need to get a delaney from the [employer] to lock and unlock the doors around here because she does not have a car anymore and other nonsensical thoughts. She does know that her doctors have been reducing her Xanax quantities over the last several months. When I asked her why she is taking the Xanax, she states it was for her nerves to help her sleep at night. She is requesting Xanax now. When asked why she was on Percocet, she told me she has been taking that for 16 years because of surgeries on the side of her left upper arm. During the night the patient was given Zyprexa 10 mg p.o. at about 2 AM for her agitation. To summarize this patient, prior to presenting to the emergency room on 12/22/2018 the patient had been prescribed Percocet 5 mg 4 times daily, Xanax twice daily, also receiving baclofen, Zanaflex, gabapentin, trazodone, sertraline, and Elavil. None of these medications have been provided since she came into the emergency room 5 days ago. It would appear the patient likely has underlying bipolar disorder possible neurodegenerative disorder, and has been suppressing the symptoms with all of these psychoactive medications she has been receiving.
[2018-12-26] MEDS: CLONIDINE 0.1 MG/24 HR PATCH.TDWK TD SCH (21:23)
--- NOTE | 2018-12-26 23:42 | ER Document Report ---
Addendum entered and electronically signed by LORRAINE HOBBS MD 01/02/19 13:29: Discharge - Discharge Clinical Impression: Manic behavior, Altered mental status, Concern about neurological disease without diagnosis, History of recent stressful life event, History of depression, History of anxiety Condition: Stable Disposition: HOME, SELF-CARE Additional Instructions: You have been evaluated by both medical and behavioral health providers while in the emergency department. You have been cleared from both acute medical and psychiatric services. There are a combination of concerns regarding triggers/explanations for presenting condition of marly and altered mental status and those are: history of depression/anxiety, your age, recent trauma/stress, dehydration from not eating/drinking initially causing issues with diabetes and concern for possibility of neurodegenerative processes (not diagnosed previously or currently, requires neurology follow up). Your medications have been adjusted to better manage presenting behaviors (marly, altered mental status), as well as previous mental health diagnoses )of depression and anxiety) Altered Mental Status An altered mental status is a change in the normal functioning of the brain. This alteration of function can range from minor decreased brain function with some forgetfulness and confusion to complete loss of consciousness and coma. There are many possible causes of an altered mental status and include brain injuries such as trauma or strokes, problems with oxygen supply to the brain, fever and infections of the brain and/or elsewhere in the body, metabolic abnormalities such as low or high blood sugar, overdoses or excessive medication ingestion, and mental and psychiatric illnesses. Sometimes the altered mental status resolves and a definite cause is not determined. If a cause for your altered mental status was found, it has likely been corrected. Your evaluation has not shown any condition that requires that you be admitted to the hospital. It is believed that you are safe to leave and return to your home. If you have a return of your symptoms, you should return for re-evaluation. Dementia (concern for neurodegenerative processes, no previous diagnosis, recommend neurology follow up) The exam shows a decrease in mental ability called dementia. Signs of dementia include a gradual loss of memory and a decreased ability to reason and solve problems. Personality changes, hostility, lack of self-care, and loss of bladder or bowel control are later signs of dementia. In these later stages, patients may become confused, lost, fearful, or agitated, even in familiar places. Alzheimer's disease is the most common type of dementia. It has no known cause or specific treatment. Other causes include alcohol and drug abuse, medication effects (especially tranquilizers and sleeping pills), strokes, head injuries, and brain tumors. Sometimes severe depression in an elderly person is mistaken for dementia, and this can be treated if recognized. A complete medical evaluation and ongoing care with a doctor is important. Most people with dementia need help or supervision with daily living. Some may b e able to live independently with occasional help; others require foster care or even mcc placement. Alcohol, sedatives, and antihistamines may make the symptoms worse and should be avoided. Alzheimer's disease support groups are available in some communities and can be very valuable to the entire family. Prescription medication can ease the symptoms of Alzheimer's disease in some patients. Please arrange for medical follow-up. Return here if there is a sudden change in mental function, inability to move an arm or leg, inability to speak, fever, or any other significant change. Bipolar Disorder (more specifically marly, how you initially presented, organic processes can also mimic, trauma/stress jimmie also mimic) Bipolar disorder is also called manic-depressive disorder. Depression alternates with brain hyperactivity called marly. Each phase lasts from several days to a few weeks. We don't know exactly what causes bipolar disorder, but it's treatable. During the "manic phase," you may feel elated and energetic. You may have racing thoughts, rapid speech, increased activity, and grandiose ideas. During this time, you may not realize how poor your judgement is. Inappropriate spending, drug abuse, excessive alcohol use, marriage problems, and irresponsible sexual behavior are common during the manic phase. During the "depressive phase," you might feel depressed, guilty, worthless, fatigued, and unable to concentrate. You might have thoughts of suicide. Good treatments are available for bipolar disorder. [place] is a classic drug for bipolar disorder, and is still often useful. If the manic phase is very mild, an antidepressant alone can be prescribed. If the manic phase is very se lisa, an antipsychotic medicine (such as Haldol) may be needed. The treatment must be matched to your symptoms, so it's important to work closely with your psychiatric care provider. Contact your physician, the hospital emergency center, crisis line, or your counsellor if you are losing control or having self-destructive thoughts. Follow-Up Plan: Your psychiatric medication were adjusted and includes: Depakote DR 250MG twice a day for mood stabilization Buspar 5MG twice a day for anxiety/calming effect/depression/sleep Risperdal 0.25MG twice a day (once at 8:00AM and once at 4:00PM) You have a follow up medication management appointment at [facility] ([facility]) on 01/09/19 at 3:30PM with Nurse Practitioner Ms Jaquez. It is recommended you follow up with your Primary Care provider for general follow up and any referrals they can make for in home health, other medical assistance and neurology referral. You have been provided the [facility] Mobile Crisis number for crisis, talk therapy and linkage to other services/supports. If your symptoms persist or worsen contact your physician immediately, utilize mobile crisis or return to the emergency department. Prescriptions: Buspirone HCl [Buspar 5 mg Tablet] 1 tab PO BID #15 tab Divalproex Sodium [Depakote Er 250 Mg Tablet] 250 mg PO BID #15 tab.[id number] Risperidone [Risperdal 0.25 Mg Tablet] 0.25 mg PO BID #15 tablet Referrals: [facility] [Provider Group] - 01/09/19 3:30 pm [facility] Crisis Team [Outside] - Follow up as needed AMARIS DIEHL, ACCOUNTS OFFICER [Primary Care Provider] - Follow up as needed Course - Vital Signs Vital signs: Temp Pulse Resp BP Pulse Ox 98.2 F 80 18 118/76 99 01/02/19 06:47 01/02/19 06:47 01/02/19 06:47 01/02/19 06:47 01/02/19 06:47 - Laboratory Result Diagrams: 12/27/18 10:10 12/28/18 15:52 Laboratory results interpreted by me: 12/22/18 12/22/18 12/22/18 14:41 14:42 14:58 Potassium 3.2 L Chloride 97 L BUN 28 H Glucose 197 H POC Glucose 189 H Calcium Direct Bilirubin 0.5 H Urine Protein 100 H Urine Glucose (UA) 50 H Urine Ketones 80 H Urine Blood SMALL H Urine Urobilinogen 2.0 H Ur Leukocyte Esterase 12/24/18 12/25/18 12/26/18 20:43 20:52 09:58 Potassium Chloride BUN Glucose POC Glucose 195 H 172 H 190 H Calcium Direct Bilirubin Urine Protein Urine Glucose (UA) Urine Ketones Urine Blood Urine Urobilinogen Ur Leukocyte Esterase 12/26/18 12/27/18 12/28/18 12:26 10:10 10:20 Potassium 3.1 L Chloride BUN 31 H Glucose 206 H POC Glucose 237 H Calcium 10.3 H Direct Bilirubin Urine Protein >=500 H Urine Glucose (UA) >=500 H Urine Ketones 80 H Urine Blood SMALL H Urine Urobilinogen Ur Leukocyte Esterase 12/28/18 12/28/18 12/28/18 15:52 16:57 23:31 Potassium Chloride BUN 36 H Glucose 127 H POC Glucose 129 H Calcium Direct Bilirubin Urine Protein Urine Glucose (UA) 50 H Urine Ketones 20 H Urine Blood Urine Urobilinogen Ur Leukocyte Esterase TRACE H 01/01/19 01/01/19 09:30 15:57 Potassium Chloride BUN Glucose POC Glucose 153 H 127 H Calcium Direct Bilirubin Urine Protein Urine Glucose (UA) Urine Ketones Urine Blood Urine Urobilinogen Ur Leukocyte Esterase Physical Exam - Vital signs Vitals: Pulse Ox 95 12/22/18 14:25 Addendum entered and electronically signed by SOL ROSE LPC 01/02/19 12:31: Discharge - Discharge Clinical Impression: Manic behavior, Altered mental status, Concern about neurological disease without diagnosis, History of recent stressful life event, History of depression, History of anxiety Condition: Stable Disposition: HOME, SELF-CARE Additional Instructions: You have been evaluated by both medical and behavioral health providers while in the emergency department. You have been cleared from both acute medical and psychiatric services. There are a combination of concerns regarding triggers/explanations for presenting condition of marly and altered mental status and those are: history of depression/anxiety, your age, recent trauma/stress, dehydration from not eating/drinking initially causing issues with diabetes and concern for possibility of neurodegenerative processes (not diagnosed previously or currently, requires neurology follow up). Your medications have been adjusted to better manage presenting behaviors (marly, altered mental status), as well as previous mental health diagnoses )of depression and anxiety) Altered Mental Status An altered mental status is a change in the normal functioning of the brain. This alteration of function can range from minor decreased brain function with some forgetfulness and confusion to complete loss of consciousness and coma. There are many possible causes of an altered mental status and include brain injuries such as trauma or strokes, problems with oxygen supply to the brain, fever and infections of the brain and/or elsewhere in the body, metabolic abnormalities such as low or high blood sugar, overdoses or excessive medication ingestion, and mental and psychiatric illnesses. Sometimes the altered mental status resolves and a definite cause is not determined. If a cause for your altered mental status was found, it has likely been corrected. Your evaluation has not shown any condition that requires that you be admitted to the hospital. It is believed that you are safe to leave and return to your home. If you have a return of your symptoms, you should return for re-evaluation. Dementia (concern for neurodegenerative processes, no previous diagnosis, recommend neurology follow up) The exam shows a decrease in mental ability called dementia. Signs of dementia include a gradual loss of memory and a decreased ability to reason and solve problems. Personality changes, hostility, lack of self-care, and loss of bladder or bowel control are later signs of dementia. In these later stages, patients may become confused, lost, fearful, or agitated, even in familiar places. Alzheimer's disease is the most common type of dementia. It has no known cause or specific treatment. Other causes include alcohol and drug abuse, medication effects (especially tranquilizers and sleeping pills), strokes, head injuries, and brain tumors. Sometimes severe depression in an elderly person is mistaken for dementia, and this can be treated if recognized. A complete medical evaluation and ongoing care with a doctor is important. Most people with dementia need help or supervision with daily living. Some may be able to live independently with occasional help; others require foster care or even mcc placement. Alcohol, sedatives, and antihistamines may make the symptoms worse and should be avoided. Alzheimer's disease support groups are available in some communities and can be very valuable to the entire family. Prescription medication can ease the symptoms of Alzheimer's disease in some patients. Please arrange for medical follow-up. Return here if there is a sudden change in mental function, inability to move an arm or leg, inability to speak, fever, or any other significant change. Bipolar Disorder (more specifically marly, how you initially presented, organic processes can also mimic, trauma/stress jimmie also mimic) Bipolar disorder is also called manic-depressive disorder. Depression alternates with brain hyperactivity called marly. Each phase lasts from several days to a few weeks. We don't know exactly what causes bipolar disorder, but it's treatable. During the "manic phase," you may feel elated and energetic. You may have racing thoughts, rapid speech, increased activity, and grandiose ideas. During this time, you may not realize how poor your judgement is. Inappropriate spending, drug abuse, excessive alcohol use, marriage problems, and irresponsible sexual behavior are common during the manic phase. During the "depressive phase," you might feel depressed, guilty, worthless, fatigued, and unable to concentrate. You might have thoughts of suicide. Good treatments are available for bipolar disorder. [place] is a classic drug for bipolar disorder, and is still often useful. If the manic phase is very mild, an antidepressant alone can be prescribed. If the manic phase is very severe, an antipsychotic medicine (such as Haldol) may be needed. The treatment must be matched to your symptoms, so it's important to work closely with your psychiatric care provider. Contact your physician, the hospital emergency center, crisis line, or your counsellor if you are losing control or having self-destructive thoughts. Follow-Up Plan: Your psychiatric medication were adjusted and includes: Depakote DR 250MG twice a day for mood stabilization Buspar 5MG twice a day for anxiety/calming effect/depression/sleep Risperdal 0.25MG twice a day (once at 8:00AM and once at 4:00PM) You have a follow up medication management appointment at [facility] ([facility]) on 01/09/19 at 3:30PM with Nurse Practitioner Ms Jaquez. It is recommended you follow up with your Primary Care provider for general follow up and any referrals they can make for in home health, other medical assistance and neurology referral. You have been provided the [facility] Mobile Crisis number for crisis, talk therapy and linkage to other services/supports. If your symptoms persist or worsen contact your physician immediately, utilize mobile crisis or return to the emergency department. Referrals: AMARIS DIEHL, ACCOUNTS OFFICER [Primary Care Provider] - Follow up as needed [facility] Crisis Team [Outside] - Follow up as needed [facility] [Provider Group] - 01/09/19 3:30 pm Course - Vital Signs Vital signs: Temp Pulse Resp BP Pulse Ox 98.2 F 80 18 118/76 99 01/02/19 06:47 01/02/19 06:47 01/02/19 06:47 01/02/19 06:47 01/02/19 06:47 - Laboratory Result Diagrams: 12/27/18 10:10 12/28/18 15:52 Laboratory results interpreted by me: 12/22/18 12/22/18 12/22/18 14:41 14:42 14:58 Potassium 3.2 L Chloride 97 L BUN 28 H Glucose 197 H POC Glucose 189 H Calcium Direct Bilirubin 0.5 H Urine Protein 100 H Urine Glucose (UA) 50 H Urine Ketones 80 H Urine Blood SMALL H Urine Urobilinogen 2.0 H Ur Leukocyte Esterase 12/24/18 12/25/18 12/26/18 20:43 20:52 09:58 Potassium Chloride BUN Glucose POC Glucose 195 H 172 H 190 H Calcium Direct Bilirubin Urine Protein Urine Glucose (UA) Urine Ketones Urine Blood Urine Urobilinogen Ur Leukocyte Esterase 12/26/18 12/27/18 12/28/18 12:26 10:10 10:20 Potassium 3.1 L Chloride BUN 31 H Glucose 206 H POC Glucose 237 H Calcium 10.3 H Direct Bilirubin Urine Protein >=500 H Urine Glucose (UA) >=500 H Urine Ketones 80 H Urine Blood SMALL H Urine Urobilinogen Ur Leukocyte Esterase 12/28/18 12/28/18 12/28/18 15:52 16:57 23:31 Potassium Chloride BUN 36 H Glucose 127 H POC Glucose 129 H Calcium Direct Bilirubin Urine Protein Urine Glucose (UA) 50 H Urine Ketones 20 H Urine Blood Urine Urobilinogen Ur Leukocyte Esterase TRACE H 01/01/19 01/01/19 09:30 15:57 Potassium Chloride BUN Glucose POC Glucose 153 H 127 H Calcium Direct Bilirubin Urine Protein Urine Glucose (UA) Urine Ketones Urine Blood Urine Urobilinogen Ur Leukocyte Esterase Physical Exam - Vital signs Vitals: Pulse Ox 95 12/22/18 14:25 Addendum entered and electronically signed by SOL ROSE LPC 01/02/19 12:20: Discharge - Discharge Clinical Impression: Manic behavior, Altered mental status, Concern about neurological disease without diagnosis, History of recent stressful life event, History of depressi on, History of anxiety Condition: Stable Disposition: HOME, SELF-CARE Additional Instructions: You have been evaluated by both medical and behavioral health providers while in the emergency department. You have been cleared from both acute medical and psychiatric services. There are a combination of concerns regarding triggers/explanations for presenting condition of marly and altered mental status and those are: history of depression/anxiety, your age, recent trauma/stress, dehydration from not eating/drinking initially causing issues with diabetes and concern for possibility of neurodegenerative processes (not diagnosed previously or currently, requires neurology follow up). Your medications have been adjusted to better manage presenting behaviors (marly, altered mental status), as well as previous mental health diagnoses )of depression and anxiety) Altered Mental Status An altered mental status is a change in the normal functioning of the brain. This alteration of function can range from minor decreased brain function with some forgetfulness and confusion to complete loss of consciousness and coma. There are many possible causes of an altered mental status and include brain injuries such as trauma or strokes, problems with oxygen supply to the brain, fever and infections of the brain and/or elsewhere in the body, metabolic abnormalities such as low or high blood sugar, overdoses or excessive medication ingestion, and mental and psychiatric illnesses. Sometimes the altered mental status resolves and a definite cause is not determined. If a cause for your altered mental status was found, it has likely been corrected. Your evaluation has not shown any condition that requires that you b e admitted to the hospital. It is believed that you are safe to leave and return to your home. If you have a return of your symptoms, you should return for re-evaluation. Dementia (concern for neurodegenerative processes, no previous diagnosis, recommend neurology follow up) The exam shows a decrease in mental ability called dementia. Signs of dementia include a gradual loss of memory and a decreased ability to reason and solve problems. Personality changes, hostility, lack of self-care, and loss of bladder or bowel control are later signs of dementia. In these later stages, patients may become confused, lost, fearful, or agitated, even in familiar places. Alzheimer's disease is the most common type of dementia. It has no known cause or specific treatment. Other causes include alcohol and drug abuse, medication effects (especially tranquilizers and sleeping pills), strokes, head injuries, and brain tumors. Sometimes severe depression in an elderly person is mistaken for dementia, and this can be treated if recognized. A complete medical evaluation and ongoing care with a doctor is important. Most people with dementia need help or supervision with daily living. Some may be able to live independently with occasional help; others require foster care or even mcc placement. Alcohol, sedatives, and antihistamines may make the symptoms worse and should be avoided. Alzheimer's disease support groups are available in some communities and can be very valuable to the entire family. Prescription medication can ease the symptoms of Alzheimer's disease in some patients. Please arrange for medical follow-up. Return here if there is a sudden change in mental function, inability to move an arm or leg, inability to speak, fever, or any other significant change. Bipolar Disorder (more specifically marly, how you initially presented, organic processes can also mimic, trauma/stress jimmie also mimic) Bipolar disorder is also called manic-depressive disorder. Depression alternates with brain hyperactivity called marly. Each phase lasts from several days to a few weeks. We don't know exactly what causes bipolar disorder, but it's treatable. During the "manic phase," you may feel elated and energetic. You may have racing thoughts, rapid speech, increased activity, and grandiose ideas. During this time, you may not realize how poor your judgement is. Inappropriate spending, drug abuse, excessive alcohol use, marriage problems, and irresponsible sexual behavior are common during the manic phase. During the "depressive phase," you might feel depressed, guilty, worthless, fatigued, and unable to concentrate. You might have thoughts of suicide. Good treatments are available for bipolar disorder. [place] is a classic drug for bipolar disorder, and is still often useful. If the manic phase is very mild, an antidepressant alone can be prescribed. If the manic phase is very severe, an antipsychotic medicine (such as Haldol) may be needed. The treatment must be matched to your symptoms, so it's important to work closely with your psychiatric care provider. Contact your physician, the hospital emergency center, crisis line, or your counsellor if you are losing control or having self-destructive thoughts. Follow-Up Plan: Your psychiatric medication were adjusted and includes: Depakote DR 250MG twice a day for mood stabilization Buspar 5MG twice a day for anxiety/calming effect/depression/sleep Risperdal 0.25MG twice a day (once at 8:00AM and once at 4:00PM) Referrals: MARSHBURN,AMARIS D, ACCOUNTS OFFICER [Primary Care Provider] - Follow up as needed Course - Vital Signs Vital signs: Temp Pulse Resp BP Pulse Ox 98.2 F 80 18 118/76 99 01/02/19 06:47 01/02/19 06:47 01/02/19 06:47 01/02/19 06:47 01/02/19 06:47 - Laboratory Result Diagrams: 12/27/18 10:10 12/28/18 15:52 Laboratory results interpreted by me: 12/22/18 12/22/18 12/22/18 14:41 14:42 14:58 Potassium 3.2 L Chloride 97 L BUN 28 H Glucose 197 H POC Glucose 189 H Calcium Direct Bilirubin 0.5 H Urine Protein 100 H Urine Glucose (UA) 50 H Urine Ketones 80 H Urine Blood SMALL H Urine Urobilinogen 2.0 H Ur Leukocyte Esterase 12/24/18 12/25/18 12/26/18 20:43 20:52 09:58 Potassium Chloride BUN Glucose POC Glucose 195 H 172 H 190 H Calcium Direct Bilirubin Urine Protein Urine Glucose (UA) Urine Ketones Urine Blood Urine Urobilinogen Ur Leukocyte Esterase 12/26/18 12/27/18 12/28/18 12:26 10:10 10:20 Potassium 3.1 L Chloride BUN 31 H Glucose 206 H POC Glucose 237 H Calcium 10.3 H Direct Bilirubin Urine Protein >=500 H Urine Glucose (UA) >=500 H Urine Ketones 80 H Urine Blood SMALL H Urine Urobilinogen Ur Leukocyte Esterase 12/28/18 12/28/18 12/28/18 15:52 16:57 23:31 Potassium Chloride BUN 36 H Glucose 127 H POC Glucose 129 H Calcium Direct Bilirubin Urine Protein Urine Glucose (UA) 50 H Urine Ketones 20 H Urine Blood Urine Urobilinogen Ur Leukocyte Esterase TRACE H 01/01/19 01/01/19 09:30 15:57 Potassium Chloride BUN Glucose POC Glucose 153 H 127 H Calcium Direct Bilirubin Urine Protein Urine Glucose (UA) Urine Ketones Urine Blood Urine Urobilinogen Ur Leukocyte Esterase Physical Exam - Vital signs Vitals: Pulse Ox 95 12/22/18 14:25 Original Note: Entered by JONELLE BEGUM SCRIBE 12/23/18 0232 Acting as scribe for:LISA ADAMSON DO Doctor's Note Notes: 12/23/18 02:31 Patient observed walking down the hallway attempting to leave the department. Patient is argumentative, stating she is 69 years old and she can make her own decisions and do what she wants. 12/23/18 02:49 Immediately after receiving Zyprexa and Cogentin the patient was again tried to elope from the emergency department had to be taken back to her room by security. At this point patient will be put in hard restraints while we wait for the Zyprexa and the Cogentin to take effect. I personally performed the services described in the documentation, reviewed and edited the documentation which was dictated to the scribe in my presence, and it accurately records my words and actions.
[2018-12-26] MEDS ORDERED: HYDROXYZINE PAMOATE 50 MG CAPSULE PO ONE (23:43)
[2018-12-27] MEDS: OLANZAPINE INJ/PF 10 MG SDV IM ONE ×2 (02:03→02:16)
[2018-12-27] MEDS ORDERED: OLANZAPINE 5 MG TAB.RAPDIS PO ONE (02:07)
--- NOTE | 2018-12-27 02:08 | ER Document Report ---
Doctor's Note Notes: 12/27/18 02:08 Patient continuing to be disruptive, climbed into bed with another patient. Patient will be treated with Zyprexa. Initially ordered as a shot however patient agrees to take medication by mouth. Zyprexa Zydis has been ordered 10 mg. 12/27/18 02:47 Patient took the Zyprexa Zydis and then attempted to elope from the emergency department. Patient will be placed in hard restraints.
[2018-12-27] MEDS: RISPERIDONE 0.25 MG TABLET PO SCH ×2 (09:45→17:20)
[2018-12-27] MEDS: DIVALPROEX SODIUM 250 MG TABLET.DR PO SCH ×2 (09:45→17:20)
[2018-12-27] MEDS: BUSPIRONE HCL 10 MG TABLET PO SCH ×2 (09:46→17:20)
[2018-12-27] MEDS: LOSARTAN POTASSIUM 50 MG TABLET PO SCH (09:46)
[2018-12-27] MEDS: METFORMIN HCL 500 MG TABLET PO SCH (09:46)
[2018-12-27] MEDS: HYDROCHLOROTHIAZIDE 12.5 MG TABLET PO SCH (09:46)
[2018-12-27 10:24] LABS: ABSOLUTE BASOPHILS # (AUTO) 0.1 10^3/uL (0.0-0.2); ABSOLUTE LYMPHOCYTES (AUTO) 2.4 10^3/uL (0.5-4.7); ABSOLUTE MONOCYTES (AUTO) 0.7 10^3/uL (0.1-1.4); BASOPHILS % (AUTO) 1.3 % (0-2); EOSINOPHILS % (AUTO) 0.5 % (0-6); HEMATOCRIT 42.8 % (36.0-47.0); HEMOGLOBIN 14.8 g/dL (12.0-15.5); LYMPHOCYTES % (AUTO) 32.7 % (13-45); MEAN CORPUSCULAR HGB CONC 34.6 g/dL (32.0-36.0); MEAN CORPUSCULAR VOLUME 87 fl (80-97); MONOCYTES % (AUTO) 9.9 % (3-13); PLATELET COUNT 314 10^3/uL (150-450); RED BLOOD COUNT 4.94 10^6/uL (3.72-5.28); RED CELL DISTRIBUTION WIDTH 13.2 % (11.5-14.0); SEGMENTED NEUTROPHILS % (AUTO) 55.6 % (42-78); TOTAL CELLS COUNTED % (AUTO) 100 %; WHITE BLOOD COUNT 7.3 10^3/uL (4.0-10.5)
[2018-12-27 10:39] LABS: ANION GAP 13 (5-19); BLOOD UREA NITROGEN 31 mg/dL (7-20); CALCIUM 10.3 mg/dL (8.4-10.2); CARBON DIOXIDE 28 mmol/L (22-30); CHLORIDE 100 mmol/L (98-107); GLUCOSE 206 mg/dL (75-110); POTASSIUM 3.1 mmol/L (3.6-5.0)
[2018-12-28] MEDS: CLONIDINE 0.1 MG/24 HR PATCH.TDWK TD SCH (01:55)
[2018-12-28] MEDS ORDERED: POTASSIUM CHLORIDE 10 MEQ CAPSULE.ER PO ONE (10:08)
[2018-12-28] MEDS ORDERED: NORMAL SALINE 1000 ML 1,000 ML IV ONE ×2 (10:09→17:06)
[2018-12-28] MEDS: RISPERIDONE 0.25 MG TABLET PO SCH ×2 (10:10→18:03)
--- NOTE | 2018-12-28 10:11 | ER Document Report ---
Doctor's Note Notes: 12/28/18 10:09 At this time there is difficulty in placing the patient due to her having underlying medical problems, and the lab values showing an elevated BUN, a low potassium, persistently elevated blood sugars, ketones in the urine and sugar in the urine. Although this would easily correct if the patient ate a good diet and drink plenty of fluids. The plan at this time is to increase the patient's metformin from 500 daily to 500 twice daily. Give at least 1 L of normal saline IV. Give 40 mEq of potassium p.o. now, and possibly start potassium supplements based on lab work later today. 12/28/18 18:46 Patient potassium did improve some, her urine protein glucose and specific gravity did improve, she still does appear to be somewhat dehydrated. We will give an additional liter of normal saline IV. We will start her on potassium supplements.
[2018-12-28] MEDS: HYDROCHLOROTHIAZIDE 12.5 MG TABLET PO SCH (10:14)
[2018-12-28] MEDS: DIVALPROEX SODIUM 250 MG TABLET.DR PO SCH ×2 (10:15→18:03)
[2018-12-28] MEDS: BUSPIRONE HCL 10 MG TABLET PO SCH ×2 (10:21→18:03)
[2018-12-28] MEDS: LOSARTAN POTASSIUM 50 MG TABLET PO SCH (10:22)
[2018-12-28] MEDS: METFORMIN HCL 500 MG TABLET PO SCH ×3 (10:31→18:03)
[2018-12-28 16:17] LABS: ANION GAP 12 (5-19); BLOOD UREA NITROGEN 36 mg/dL (7-20); CALCIUM 9.8 mg/dL (8.4-10.2); CARBON DIOXIDE 27 mmol/L (22-30); CHLORIDE 101 mmol/L (98-107); GLUCOSE 127 mg/dL (75-110); POTASSIUM 3.6 mmol/L (3.6-5.0)
[2018-12-28 17:10] LABS: APPEARANCE,URINE CLOUDY; BILIRUBIN,URINE NEGATIVE (NEGATIVE); COLOR,URINE YELLOW; GLUCOSE, URINE 50 mg/dL (NEGATIVE); KETONES,URINE 20 mg/dL (NEGATIVE); LEUKOCYTE ESTERASE,URINE TRACE (NEGATIVE); NITRITE,URINE NEGATIVE (NEGATIVE); PROTEIN,URINE NEGATIVE (NEGATIVE); URINE SPECIFIC GRAVITY 1.021; UROBILINOGEN,URINE NEGATIVE mg/dL (<2.0)
[2018-12-28] MEDS: POTASSIUM CHLORIDE 10 MEQ CAPSULE.ER PO SCH (18:07)
[2018-12-29] MEDS: CLONIDINE 0.1 MG/24 HR PATCH.TDWK TD SCH (00:35)
[2018-12-29] MEDS: POTASSIUM CHLORIDE 10 MEQ CAPSULE.ER PO SCH ×5 (00:38→21:06)
[2018-12-29] MEDS: LOSARTAN POTASSIUM 50 MG TABLET PO SCH (10:28)
[2018-12-29] MEDS: BUSPIRONE HCL 10 MG TABLET PO SCH ×2 (10:28→17:27)
[2018-12-29] MEDS: RISPERIDONE 0.25 MG TABLET PO SCH ×2 (10:29→17:28)
[2018-12-29] MEDS: HYDROCHLOROTHIAZIDE 12.5 MG TABLET PO SCH (10:29)
[2018-12-29] MEDS: METFORMIN HCL 500 MG TABLET PO SCH ×2 (10:29→17:28)
[2018-12-29] MEDS: DIVALPROEX SODIUM 250 MG TABLET.DR PO SCH ×2 (10:29→17:26)
--- NOTE | 2018-12-29 12:01 | RADIOLOGY REPORT (SQ) ---
EXAM DESCRIPTION: CT HEAD WITHOUT COMPLETED DATE/TIME: 12/29/2018 11:50 am REASON FOR STUDY: Change in mental status R41.82 ALTERED MENTAL STATUS, UNSPECIFIED F32.9 MAJOR DE PRESSIVE DISORDER, SINGLE EPISODE, UNSPECIFIED R41.82 ALTERED MENTAL STATUS, UNSPECIFIED COMPARISON: 12/22/2018 TECHNIQUE: Axial images acquired through the brain without intravenous contrast. Images reviewed wi th bone, brain and subdural windows. Additional sagittal and coronal reconstructions were generated. Images stored on PACS. All CT scanners at this facility use dose modulation, iterative reconstruction, and/or weight based d osing when appropriate to reduce radiation dose to as low as reasonably achievable (ALARA). [facility]: Dose Right [facility]: CareDose [facility]: Dose Right [facility]: Teradose 4D [facility]: OpenSilo RADIATION DOSE: CT Rad equipment meets quality standard of care and radiation dose reduction techniq ues were employed. CTDIvol: 53.2 mGy. DLP: 1044 mGy-cm. mGy. LIMITATIONS: None. FINDINGS: VENTRICLES: Normal size and contour. CEREBRUM: No masses. No hemorrhage. No midline shift. No evidence for acute infarction. Normal gra y/white matter differentiation. No areas of low density in the white matter. CEREBELLUM: No masses. No hemorrhage. No alteration of density. No evidence for acute infarction. EXTRAAXIAL SPACES: No fluid collections. No masses. ORBITS AND GLOBE: No intra- or extraconal masses. Normal contour of globe without masses. CALVARIUM: No fracture. PARANASAL SINUSES: No fluid or mucosal thickening. SOFT TISSUES: No mass or hematoma. OTHER: No other significant finding. IMPRESSION: NORMAL BRAIN CT WITHOUT CONTRAST. EVIDENCE OF ACUTE STROKE: NO. COMMENT: Quality ID # [id number]: Final reports with documentation of one or more dose reduction techniques (e.g., Automated exposure control, adjustment of the mA and/or kV according to patient size, use of iterative reconstruction technique) TECHNICAL DOCUMENTATION: JOB ID: [id number] [employer]- All Rights Reserved Reading location - IP/workstation name: [email or web address]
[2018-12-29] MEDS: ONDANSETRON 4 MG TAB.RAPDIS PO PRN (17:27)
[2018-12-29] MEDS ORDERED: MIRTAZAPINE 15 MG TABLET PO ONE (20:41)
[2018-12-30] MEDS ORDERED: OLANZAPINE 5 MG TABLET PO ONE (00:58)
--- NOTE | 2018-12-30 00:59 | ER Document Report ---
Doctor's Note Notes: 12/30/18 00:58 The nurse has become evaluate patient because she has been come increasingly agitated. I going around the patient is sitting on the floor as they removed her bed in her mattress. Apparently the patient had flipped the mattress off the bed and was trying to push the bed. They then left with a mattress but she used a mattress to try to struck the door. At this time I do not want her sitting on the hard floor. In reviewing her records appears that Zyprexa has worked well for when she is become agitated the past. Patient agrees to take an oral dose of Zyprexa. I will give her a dose of Zyprexa and informed the nurse to give her back her mattress so that she is not on the hard floor. Dictation of this chart was performed using voice recognition software; therefore, there may be some unintended grammatical errors. 12/30/18 00:59
[2018-12-30] MEDS ORDERED: HALOPERIDOL LACTATE INJ 5 MG/1 ML VIAL IM ONE (01:20)
[2018-12-30] MEDS ORDERED: DIPHENHYDRAMINE HCL 50 MG/ML VIAL IM ONE (01:20)
[2018-12-30] MEDS ORDERED: LORAZEPAM INJ 2 MG/1 ML VIAL IM ONE (01:20)
[2018-12-30] MEDS: POTASSIUM CHLORIDE 10 MEQ CAPSULE.ER PO SCH ×2 (06:02→14:44)
[2018-12-30] MEDS: METFORMIN HCL 500 MG TABLET PO SCH ×2 (10:18→18:20)
[2018-12-30] MEDS: BUSPIRONE HCL 10 MG TABLET PO SCH ×2 (10:18→18:20)
[2018-12-30] MEDS: HYDROCHLOROTHIAZIDE 12.5 MG TABLET PO SCH (10:18)
[2018-12-30] MEDS: RISPERIDONE 0.25 MG TABLET PO SCH ×2 (10:21→18:20)
[2018-12-30] MEDS: LOSARTAN POTASSIUM 50 MG TABLET PO SCH (10:21)
[2018-12-30] MEDS: DIVALPROEX SODIUM 250 MG TABLET.DR PO SCH ×2 (10:22→18:20)
--- NOTE | 2018-12-30 14:36 | ER Document Report ---
Doctor's Note Notes: 12/30/18 14:35 Discussed with behavioral health, patient continues to try to elope, K patient continues to be uncooperative and confused, having auditory hallucinations and talking to people who were not there. We did try observing the patient for approximately 2 days without any outside visitors to make sure that she was not being increasingly agitated due to familial concerns. There has been no improvement in her behavior. She did have to be placed back in restraints within the past 24 hours. Patient is lying in bed, in no acute distress, complaining of right low back pain, physical exam is unremarkable, nontender on palpation, no step-offs or deformities. Moves all 4 extremities spontaneously, has been observed walking around the emergency department without any difficulty on multiple occasions. No foot drop. Involuntary commitment paperwork will be renewed.
[2018-12-30] MEDS: ONDANSETRON 4 MG TAB.RAPDIS PO PRN (18:20)
[2018-12-31] MEDS: POTASSIUM CHLORIDE 10 MEQ CAPSULE.ER PO SCH ×3 (05:36→14:36)
[2018-12-31] MEDS: BUSPIRONE HCL 10 MG TABLET PO SCH ×2 (09:26→17:01)
[2018-12-31] MEDS: METFORMIN HCL 500 MG TABLET PO SCH ×2 (09:26→17:01)
[2018-12-31] MEDS: DIVALPROEX SODIUM 250 MG TABLET.DR PO SCH ×2 (09:26→17:01)
[2018-12-31] MEDS: RISPERIDONE 0.25 MG TABLET PO SCH ×2 (09:26→17:01)
[2018-12-31] MEDS: LOSARTAN POTASSIUM 50 MG TABLET PO SCH (09:26)
[2018-12-31] MEDS: HYDROCHLOROTHIAZIDE 12.5 MG TABLET PO SCH (09:26)
--- NOTE | 2018-12-31 13:59 | ER Document Report ---
Doctor's Note Notes: 12/31/18 16:58 Patient is now reporting that she had an MRI several years ago by Dr. Sandoval, was told that she might need neurosurgery. Did not have her follow-up and does not know what she needed the neurosurgery for. Does not know what the finding was on the MRI. I cannot visualize these results in the computer. This does not appear to have been performed here. We will attempt to get the records. Patient states it was done in [place]. Patient did have a short lucid interval during which she was able to tell us about this MRI, otherwise patient has been demonstrating increased religiosity, stating that she is here to learn about the meaning of life and demons. Is aware that she is in the hospital and aware of the date. No acute distress. Does easily go in and out of lucid intervals however she never has any change in her level of consciousness. No acute distress. Daughter does point out a lesion on her left thigh which will I will go and examine shortly. GENERAL: Alert, interacts well. No acute distress. HEAD: Normocephalic, atraumatic EYES: Pupils equal, round and reactive to light, extraocular movements intact. ENT: Oral mucosa moist, tongue midline. NECK: Full range of motion, supple, trachea midline. LUNGS: no respiratory distress. EXTREMITIES: Moves all 4 extremities spontaneously, no edema. No cyanosis. NEUROLOGICAL: Alert and oriented x3, normal speech. PSYCH: Increased religiosity. SKIN: Warm, Dry, normal turgor. Left lateral lower thigh shows an 8 mm lesion that is crusted, non-tender and multicolored. No fluctuance. 12/31/18 18:26 Patient states that the lesion on the left lateral thigh has been present for several weeks if not months. States that she has been covering it with a Band- Aid and whenever the scab dries out she tries to pick it off but then it scabs up again. Discussed with patient that she needs to not pick at the scab at all or also will never heal and if after giving it 1 to 2 weeks to heal without picking at it it is still present then she will likely need to have it biopsied by dermatology in order to make sure that this is not skin cancer. Patient's daughter is aware of the lesion as well and the need for follow-up.
[2019-01-01] MEDS: POTASSIUM CHLORIDE 10 MEQ CAPSULE.ER PO SCH ×3 (00:08→13:20)
[2019-01-01] MEDS: DIVALPROEX SODIUM 250 MG TABLET.DR PO SCH ×2 (09:24→18:02)
[2019-01-01] MEDS: HYDROCHLOROTHIAZIDE 12.5 MG TABLET PO SCH (09:24)
[2019-01-01] MEDS: BUSPIRONE HCL 10 MG TABLET PO SCH ×2 (09:29→18:02)
[2019-01-01] MEDS: METFORMIN HCL 500 MG TABLET PO SCH ×2 (09:29→18:02)
[2019-01-01] MEDS: LOSARTAN POTASSIUM 50 MG TABLET PO SCH (09:29)
[2019-01-01] MEDS: RISPERIDONE 0.25 MG TABLET PO SCH ×2 (09:29→18:02)
--- NOTE | 2019-01-01 09:50 | ER Document Report ---
Doctor's Note Notes: 01/01/19 09:48 I have evaluated this pt. this am and she has no c/o at this time. She feels all of her needs are being met and her physical exam is normal. She is awaiting placement per mental health.
[2019-01-01] MEDS ORDERED: ACETAMINOPHEN 325 MG TABLET PO ONE ×2 (10:31→17:30)
[2019-01-01] MEDS ORDERED: NICOTINE 21 MG/24 HR PATCH.TD24 TD ONE (10:47)
[2019-01-01] MEDS ORDERED: FAMOTIDINE 20 MG TABLET PO ONE (12:52)
[2019-01-01] MEDS: ONDANSETRON 4 MG TAB.RAPDIS PO PRN (18:02)
--- NOTE | 2019-01-01 20:56 | ER Document Report ---
Doctor's Note Notes: 01/01/19 20:55 Patient is complaining of right ear pain, exam shows injected bulging right tympanic membrane without any opacification and there is a good light reflex. Left tympanic membrane is normal. Patient will be provided with nasal steroid spray to see if we can decrease the serous effusion.
[2019-01-01] MEDS ORDERED: FLUTICASONE NASAL SPRAY 50 MCG/SPRY 120 SPRAY/16 GM NASL SCH (21:00)
[2019-01-01] MEDS ORDERED: FLUTICASONE NASAL SPRAY 50 MCG/SPRY 120 SPRAY/16 GM ONE (21:07)
[2019-01-01] MEDS ORDERED: FLUTICASONE NASAL SPRAY 50 MCG/SPRY 120 SPRAY/16 GM NASL ONE (21:45)
[2019-01-02] MEDS: POTASSIUM CHLORIDE 10 MEQ CAPSULE.ER PO SCH ×2 (07:51→07:56)
[2019-01-02] MEDS ORDERED: FLUTICASONE NASAL SPRAY 50 MCG/SPRY 120 SPRAY/16 GM NASL SCH ×2 (10:00)
[2019-01-02] MEDS: DIVALPROEX SODIUM 250 MG TABLET.DR PO SCH (10:08)
[2019-01-02] MEDS: BUSPIRONE HCL 10 MG TABLET PO SCH (10:08)
[2019-01-02] MEDS: RISPERIDONE 0.25 MG TABLET PO SCH (10:18)
[2019-01-02] MEDS: HYDROCHLOROTHIAZIDE 12.5 MG TABLET PO SCH (10:18)
[2019-01-02] MEDS: METFORMIN HCL 500 MG TABLET PO SCH (10:18)
[2019-01-02] MEDS: LOSARTAN POTASSIUM 50 MG TABLET PO SCH (10:18)
[2019-01-02 13:29] VITALS: BP 128/70
--- NOTE | 2019-01-02 13:30 | ER Document Report ---
Doctor's Note Notes: 01/02/19 13:29 Rounds: Chart reviewed and patient interviewed. Patient has been staying in our emergency department for about 10 days now. Being evaluated and treated for change in mental status. She seems to be doing much better now. Plan is for her to be discharged this afternoon. Vital signs are all essentially normal. No new labs to evaluate. Patient appears to be stable for discharge. Dragan Diaz MD
[2019-01-04] MEDS ORDERED: CLONIDINE 0.1 MG/24 HR PATCH.TDWK TD SCH (22:00)
== END 2019-01-02 13:33 | disposition home or self-care (01) ==
LOC: ER 14:20
DX: F32.9 Major depressive disorder, single episode, unspecified (principal); R41.82 Altered mental status, unspecified; F41.9 Anxiety disorder, unspecified; M54.9 Dorsalgia, unspecified; I10 Essential (primary) hypertension; K21.9 Gastro-esophageal reflux disease without esophagitis; E11.9 Type 2 diabetes mellitus without complications
CPT/HCPCS: 93005; 99285; 96372; 96360; 96361; 36415; 82962; 80307 ×2; 83735; 84443; 85025; 80048; 80053; 81001; 80164; 70450; 93010; A9270 ×60; J0515; J1200; J1630; J2060; J7030; J3490 ×4; S0119

== ENCOUNTER 2019-04-14 14:52 | Emergency (ER) | payer MEDICARE, MEDICAID ==
[2019-04-14 15:44] VITALS: BP 150/63
[2019-04-14] MEDS ORDERED: OXYCODONE HCL IR 5 MG TABLET PO ONE (16:47)
[2019-04-14] MEDS ORDERED: LIDOCAINE 5% (700 MG) TRANSDERMAL ADH..PATCH TP ONE (16:48)
--- NOTE | 2019-04-14 16:51 | ER Document Report ---
HPI - HPI Time Seen by Provider: 04/14/19 16:36 Pain Level: 5 Context: 69-year-old female presents to the emergency department after a fall yesterday against a table onto her right side. Since then patient has had right anterior lower rib pain. She says she is taken oxycodone tens with minimal relief. Patient is not on anticoagulation. Patient did not strike her head or lose consciousness. Patient denies any shortness of breath. Patient is a 1/2 pack/day smoker. - REPRODUCTIVE Reproductive: DENIES: : Past Medical History - Social History Smoking Status: Current Every Day Smoker Frequency of alcohol use: None Drug Abuse: None Family History: Reviewed & Not Pertinent Patient has suicidal ideation: No Patient has homicidal ideation: No - Past Medical History Cardiac Medical History: Reports: Hx Hypercholesterolemia, Hx Hypertension Pulmonary Medical History: Reports: Hx Pneumonia Endocrine Medical History: Reports: Hx Diabetes Mellitus Type 2 Renal/ Medical History: Denies: Hx Peritoneal Dialysis Psychiatric Medical History: Reports: Hx Depression Past Surgical History: Reports: Hx Hysterectomy, Hx Orthopedic Surgery - left rotater cuff repainr - Immunizations Hx Diphtheria, Pertussis, Tetanus Vaccination: Yes Hx Pneumococcal Vaccination: 07/01/12 Vertical Provider Document - CONSTITUTIONAL Notes: PHYSICAL EXAMINATION: Reviewed vital signs and charting by RN GENERAL: Alert, interacts well. No acute distress. HEAD: Normocephalic, atraumatic. EYES: Pupils equal and round. Extraocular movements intact. ENT: Oral mucosa moist, tongue midline. NECK: Full range of motion. Trachea midline. LUNGS: Clear to auscultation bilaterally, no wheezes, rales, or rhonchi. No respiratory distress. CHEST: Tenderness to palpation right lower anterior ribs at the anterior axillary line HEART: Regular rate and rhythm. No murmur ABDOMEN: soft, non-tender. No distention. Bowel sounds present EXTREMITIES: Moves all 4 extremities spontaneously. No edema, No cyanosis. PSYCH: Normal affect, normal mood. SKIN: Warm, dry, normal turgor. No rashes or lesions noted. - INFECTION CONTROL TRAVEL OUTSIDE OF THE [place] IN LAST 30 DAYS: No Course - Re-evaluation Re-evalutation: 04/14/19 16:50 We will get a rib series x-rays, medicate with oxycodone and Lidoderm patch. 11/15/19 18:13 Minimal buckling of the right anterior eighth and ninth ribs, questionable acute fracture, considering the clinical picture we will treat as such. Devised patient, no evidence of pneumothorax on x-ray, she is stable for discharge. - Vital Signs Vital signs: Temp Pulse Resp BP Pulse Ox 98 F 98 16 150/63 H 94 04/14/19 15:43 04/14/19 15:43 04/14/19 15:43 04/14/19 15:43 04/14/19 15:43 Discharge - Discharge Clinical Impression: Rib pain on right side Fall Qualifiers: Encounter type: initial encounter Qualified Code(s): W19.XXXA - Unspecified fall, initial encounter Condition: Good Disposition: HOME, SELF-CARE Additional Instructions: You were seen in the emergency department for a probable fracture of your right eighth and ninth ribs. Please continue to take your oxycodone per pain management instructions. It is very important that you continue to take purposeful deep breaths. For your pain: Continue to take ibuprofen 600 mg every 6 hours or Tylenol 1000 mg every 6 hours. Apply local lidocaine to the area per bottle instructions. There is a product sold [id number] called "Aspercreme with lidocaine" that you can use for this purpose. Please follow-up with her primary care doctor in the next 2-3 days. Return to the emergency department immediately if you develop worsening shortness of breath, increased pain, begin coughing blood, pass out, or have any other symptoms that are worrisome to you. Referrals: AMARIS DIEHL, [employer]CHIT[employer] [Primary Care Provider] - Follow up as needed
--- NOTE | 2019-04-14 17:24 | RADIOLOGY REPORT (SQ) ---
EXAM DESCRIPTION: RIBS RIGHT W/PA CHEST COMPLETED DATE/TIME: 04/14/2019 5:05 pm REASON FOR STUDY: fall R lower rib pain COMPARISON: 08/20/2012 chest and rib detail films, AP chest 01/21/2017 TECHNIQUE: Frontal view of the chest and additional views of the right ribs acquired. NUMBER OF VIEWS: PA chest, right rib detail two views LIMITATIONS: None. FINDINGS: FRONTAL CXR: No pneumothorax. No pleural effusion. No atelectasis or infiltrates. Cardi ac silhouette size, piter unremarkable. RIBS: Minimal buckling of the anterior right 8th and 9th ribs, question acute fractures in this area OTHER: No other significant finding. IMPRESSION: No acute infiltrates. No pleural effusion or pneumothorax. Minimal buckling along the anterior right 8th and 9th ribs, question acute fractures. COMMENT: SITE OF TRAUMA/COMPLAINT MARKED/STAMP COMPLETED: Yes TECHNICAL DOCUMENTATION: JOB ID: [id number] [employer]- All Rights Reserved Reading location - IP/workstation name: [email or web address]
== END 2019-04-14 18:40 | disposition home or self-care (01) ==
LOC: ER 14:52
DX: R07.81 Pleurodynia (principal); W01.190A Fall on same level from slipping, tripping and stumbling with subsequent striking against furniture, initial encounter; F17.200 Nicotine dependence, unspecified, uncomplicated; I10 Essential (primary) hypertension; E11.9 Type 2 diabetes mellitus without complications
CPT/HCPCS: 71101; A9270 ×2; 99283

== ENCOUNTER 2019-07-06 17:36 | Emergency (ER) | payer MEDICARE ==
[2019-07-06] MEDS ORDERED: IPRATROPIUM/ALBUTEROL 0.5-2.5 MG/3 ML AMPUL NEB ONE (19:44)
[2019-07-06] MEDS ORDERED: BENZONATATE 100 MG CAPSULE PO ONE (19:45)
--- NOTE | 2019-07-06 19:49 | ER Document Report ---
ED Medical Screen (RME) - General Chief Complaint: Productive Cough Stated Complaint: COUGH Time Seen by Provider: 07/06/19 19:40 Primary Care Provider: AMARIS DIEHL, CANVAS BASTER [Primary Care Provider] - Follow up as needed Notes: Patient is a 69-year-old female presents emergency department with a chief complaint of cough. Patient reports she has had a productive cough with murray sputum. Patient reports that she is currently being ruled out for possible asthma by her primary care physician. Patient reports that her son came home from longterm recently and was also sick with similar symptoms. She reports she has a type II diabetic and does have chronic pain all over. Patient reports she does take oxycodone 10 mg. Patient denies influenza vaccine this year. Patient denies fever does report chills. Patient reports about 2 months ago she cracked 2 ribs on the right side, and a few weeks ago fell onto her left side. Patient denies rib pain at this time. TRAVEL OUTSIDE OF THE [place] IN LAST 30 DAYS: No - Related Data Allergies/Adverse Reactions: No Known Allergies Allergy (Verified 07/06/19 19:39) Home Medications: Patient refuses Past Medical History - Past Medical History Cardiac Medical History: Reports: Hx Hypercholesterolemia, Hx Hypertension Pulmonary Medical History: Reports: Hx Pneumonia Endocrine Medical History: Reports: Hx Diabetes Mellitus Type 2 Renal/ Medical History: Denies: Hx Peritoneal Dialysis Psychiatric Medical History: Reports: Hx Depression Past Surgical History: Reports: Hx Hysterectomy, Hx Orthopedic Surgery - left rotater cuff repainr - Immunizations Hx Diphtheria, Pertussis, Tetanus Vaccination: Yes Physical Exam - Vital signs Vitals: Temp Pulse Resp BP Pulse Ox 99.3 F 103 H 18 166/81 H 94 07/06/19 18:52 07/06/19 18:52 07/06/19 18:52 07/06/19 18:52 07/06/19 18:52 - Respiratory Breath sounds: Rhonchi Notes: Rhonchi noted in left upper and lower lobe. Course - Re-evaluation Re-evalutation: 07/06/19 19:49 We will obtain chest x-ray, give a DuoNeb. Patient 94% on room air in triage. I have greeted and performed a rapid initial assessment of this patient. A comprehensive ED assessment and evaluation of the patient, analysis of test results and completion of the medical decision making process will be conducted by additional ED providers. - Vital Signs Vital signs: Temp Pulse Resp BP Pulse Ox 99.3 F 103 H 18 166/81 H 94 07/06/19 18:52 07/06/19 18:52 07/06/19 18:52 07/06/19 18:52 07/06/19 18:52 Doctor's Discharge - Discharge Referrals: AMARIS DIEHL, CANVAS BASTER [Primary Care Provider] - Follow up as needed
--- NOTE | 2019-07-06 20:35 | RADIOLOGY REPORT (SQ) ---
EXAM DESCRIPTION: Radiograph of the chest and bilateral ribs. CLINICAL HISTORY: 69 years Female, FELL ONTO LEFT SIDE 2 WKS AGO, COUGH COMPARISON: April 14, 2019 FINDINGS: Chest: Lungs are clear. No pneumothorax or pleural effusion. Cardiac and mediastinal silhouette are unchanged. Endplate spondylosis is seen in the spine. Oblique views of the left ribs are unremarkable. Views of the right ribs demonstrate fractures of the anterior lateral seventh and eighth ribs. There is subtle subtle callus formation indicating that these are subacute. IMPRESSION: 1. No pneumonia or edema. 2. Healing right rib fractures which are subacute. 3. No acute left-sided rib fractures. No pneumothorax.
[2019-07-06] MEDS ORDERED: KETOROLAC TROMETHAMINE INJ/PF 30 MG/1 ML SDV IM ONE (21:14)
[2019-07-06] MEDS ORDERED: ACETAMINOPHEN 325 MG TABLET PO ONE (21:14)
[2019-07-06] MEDS ORDERED: ACETAMINOPHEN 325 MG TABLET ONE (23:35)
[2019-07-06] MEDS ORDERED: KETOROLAC TROMETHAMINE INJ/PF 30 MG/1 ML SDV ONE (23:35)
--- NOTE | 2019-07-07 00:27 | ER Document Report ---
ED Respiratory Problem - General Chief Complaint: Productive Cough Stated Complaint: COUGH Time Seen by Provider: 07/06/19 19:40 Primary Care Provider: AMARIS DIEHL NP [Primary Care Provider] - Follow up as needed Mode of Arrival: Ambulatory Information source: Patient Notes: This 69-year-old woman presents to the emergency department with a complaint of cough productive of the yellowish-green sputum. She denies fever, chills or associated dyspnea at rest. She complains of right sided rib cage pain secondary to a fractured rib 3 weeks ago. She denies any new or acute pain. She is taking gabapentin for chronic pain management. TRAVEL OUTSIDE OF THE [place] IN LAST 30 DAYS: No - Related Data Allergies/Adverse Reactions: No Known Allergies Allergy (Verified 07/06/19 19:39) Home Medications: Patient refuses Past Medical History - Social History Smoking Status: Current Every Day Smoker Family History: Reviewed & Not Pertinent Patient has suicidal ideation: No Patient has homicidal ideation: No - Past Medical History Cardiac Medical History: Reports: Hx Hypercholesterolemia, Hx Hypertension Pulmonary Medical History: Reports: Hx Pneumonia Endocrine Medical History: Reports: Hx Diabetes Mellitus Type 2 Renal/ Medical History: Denies: Hx Peritoneal Dialysis Psychiatric Medical History: Reports: Hx Depression Past Surgical History: Reports: Hx Appendectomy, Hx Hysterectomy, Hx Orthopedic Surgery - left rotater cuff repain - Immunizations Hx Diphtheria, Pertussis, Tetanus Vaccination: Yes Hx Pneumococcal Vaccination: 07/01/12 Review of Systems - Review of Systems Notes: Constitutional: Negative for fever. HENT: Negative for sore throat. Eyes: Negative for visual changes. Cardiovascular: Negative for chest pain. Respiratory: + Shortness of breath. + Cough + rib cage pain Gastrointestinal: Negative for abdominal pain, vomiting or diarrhea. Genitourinary: Negative for dysuria. Musculoskeletal: Negative for back pain. Skin: Negative for rash. Neurological: Negative for headaches, weakness or numbness. 10 point ROS negative except as marked above and in HPI. Physical Exam - Vital signs Vitals: Temp Pulse Resp BP Pulse Ox 99.3 F 103 H 18 166/81 H 94 07/06/19 18:52 07/06/19 18:52 07/06/19 18:52 07/06/19 18:52 07/06/19 18:52 - Notes Notes: PHYSICAL EXAMINATION: Physical Exam: General: Well-nourished well-developed 69-year-old woman in no acute distress HEENT: NC/AT, pupils equal, round and reactive to light, MM moist,nares clear, Neck: supple, no adenopathy, no masses. Lungs: clear, no wheezing, no rales no rhonchi CVS: Regular, rate, and rhythm no murmur gallop or rub Abdomen: Soft, active nontender, no masses, no hepatosplenomegaly Ext: No edema, clubbing, or cyanosis. Neuro: Alert and responsive, moving all 4 extremities on command, cranial nerves intact. Skin: Intact no open lesions, no rash PSYCH: Normal mood, normal affect. Course - Re-evaluation Re-evalutation: 07/07/19 00:26 Patient had a chest x-ray rib series performed and healing ribs on the right were noted with old rib fractures noted on the left. Patient chest x-ray otherwise is clear with no signs of infiltrate or effusion. I discussed these findings with the patient suggested that she might benefit from an oral antibiotic and follow-up with her outpatient physician for a home nebulizer unit. - Vital Signs Vital signs: Temp Pulse Resp BP Pulse Ox 98.4 F 103 H 13 151/79 H 95 07/07/19 02:09 07/06/19 18:52 07/07/19 02:09 07/07/19 02:09 07/07/19 02:09 Discharge - Discharge Clinical Impression: Cough Acute bronchitis Qualifiers: Bronchitis organism: unspecified organism Qualified Code(s): J20.9 - Acute bronchitis, unspecified Condition: Good Disposition: HOME, SELF-CARE Instructions: Bronchitis ([facility]) Additional Instructions: You were diagnosed with acute bronchitis in the emergency department, and a dose of antibiotics and a dose of cough medication was given in the emergency departm ent. Please get the prescriptions filled for medications and continue treatment. If you are improving please follow-up with your primary care doctor as needed. If your condition is worsening please return to the emergency department for further evaluation and treatment. Prescriptions: Benzonatate [Tessalon Perles 100 mg Capsule] 100 mg PO Q8HP PRN #20 capsule PRN Reason: Azithromycin [Zithromax 250 mg Tablet] 250 mg PO ASDIR PRN #6 tablet PRN Reason: Referrals: AMARIS DIEHL NP [Primary Care Provider] - Follow up as needed
[2019-07-07] MEDS ORDERED: AZITHROMYCIN 250 MG TABLET PO ONE (01:41)
[2019-07-07 02:11] VITALS: BP 151/79
== END 2019-07-07 02:12 | disposition home or self-care (01) ==
LOC: ER 17:36
DX: J20.9 Acute bronchitis, unspecified (principal); R05 Cough; R06.02 Shortness of breath; R09.81 Nasal congestion; R07.81 Pleurodynia; F17.200 Nicotine dependence, unspecified, uncomplicated; I10 Essential (primary) hypertension; E11.9 Type 2 diabetes mellitus without complications; G89.29 Other chronic pain; Z79.899 Other long term (current) drug therapy; Z87.01 Personal history of pneumonia (recurrent)
CPT/HCPCS: 71111; A9270 ×4; J1885; 94640; 96372; 99283; J7620

== ENCOUNTER → 2019-12-05 | Outpatient (CLI) | payer MEDICARE ==
--- NOTE | 2019-12-05 16:25 | RADIOLOGY REPORT (SQ) ---
EXAM DESCRIPTION: CT ABD/PELVIS COMBO IMAGES COMPLETED DATE/TIME: 12/05/2019 2:33 pm REASON FOR STUDY: R10.30 LOWER ABDOMINAL PAIN, UNSPECIFIED, R31.9 HEMATURIA, UNSPECIFIED R10.30 LOW ER ABDOMINAL PAIN, UNSPECIFIED R31.9 HEMATURIA, UNSPECIFIED. Difficulty urinating. Prior appendect billie and hysterectomy. Center lower abdominal pain. COMPARISON: CT abdomen and pelvis, 09/14/2016. TECHNIQUE: CT scan of the abdomen and pelvis performed with and without intravenous contrast, and wi th oral contrast. Contrasted imaging performed helical scanning technique and dynamic intravenous con trast injection. Images reviewed with lung, soft tissue, and bone windows. Reconstructed coronal and sagittal MPR images reviewed. Delayed images for evaluation of the urinary system also acquired. All images stored on PACS. All CT scanners at this facility use dose modulation, iterative reconstruction, and/or weight based d osing when appropriate to reduce radiation dose to as low as reasonably achievable (ALARA). [facility]: Dose Right [facility]: CareDose [facility]: Dose Right [facility]: Teradose 4D [facility]: 3Play Media CONTRAST TYPE AND DOSE: contrast/concentration: Isovue 350.00 mmol/ml; Total Contrast Delivered: 64. 0 ml; Total Saline Delivered: 65.0 ml RENAL FUNCTION: GFR > 60. RADIATION DOSE: CT Rad equipment meets quality standard of care and radiation dose reduction techniq ues were employed. CTDIvol: 9.0 - 9.0 mGy. DLP: 1406 mGy-cm. . LIMITATIONS: None. FINDINGS: NON-CONTRASTED IMAGING: No significant renal or bladder calcifications. No other significa nt organ calcifications. POST-CONTRASTED IMAGING: LOWER CHEST: No significant findings. No nodules or infiltrates. LIVER: Normal size. No masses. Prominent extrahepatic biliary ducts with gradual tapering of the dis mayra duct, stable from previous examination in 2017. SPLEEN: Normal size. Peripherally calcified a round mass within the anterior spleen demonstrates no contrast enhancement, consistent with a peripherally calcified posttraumatic cyst, unchanged from adam or. PANCREAS: No masses. No significant calcifications. No adjacent inflammation or peripancreatic fluid collections. Pancreatic duct not dilated. GALLBLADDER: No identified stones by CT criteria. No inflammatory changes to suggest cholecystitis. ADRENAL GLANDS: No significant masses or asymmetry. RIGHT KIDNEY AND URETER: Small right renal cyst. No solid mass. No significant calcifications. N o hydronephrosis or hydroureter. No renal collecting system mass or filling defect. No ureteral mas s or stricture. LEFT KIDNEY AND URETER: No solid masses. No significant calcifications. No hydronephrosis or hydr oureter. No renal collecting system mass or filling defect. No ureteral mass or stricture. AORTA AND VESSELS: No aneurysm. No dissection. Renal arteries, SMA, celiac without stenosis. RETROPERITONEUM: No retroperitoneal adenopathy, hemorrhage or masses. BOWEL AND PERITONEAL CAVITY: Moderate amount of stool throughout the colon and in the rectum. There is no bowel obstruction. No bowel wall thickening. No significant inflammatory change. No ascites or pneumoperitoneum. APPENDIX: Normal. PELVIS: Urinary bladder has normal contour. No bladder wall thickening, intraluminal bladder mass o r debris. Status post hysterectomy. No adnexal mass. Calcified pelvic phleboliths. ABDOMINAL WALL: No masses. No hernias. BONES: No significant or acute findings. OTHER: No other significant finding. IMPRESSION: 1. No renal or ureteral calculi. No renal, ureteral, or bladder mass. 2. Moderately prominent biliary ducts are stable from previous imaging, possibly post procedural or n ormal for this patient. TECHNICAL DOCUMENTATION: JOB ID: [id number] Quality ID # 436: Final reports with documentation of one or more dose reduction techniques (e.g., Au tomated exposure control, adjustment of the mA and/or kV according to patient size, use of iterative reconstruction technique) 2010 [employer]- All Rights Reserved Reading location - IP/workstation name: [email or web address]
== END ==
LOC: RAD 14:59
PROVIDERS: ATTEND Registered Nurse
DX: R10.30 Lower abdominal pain, unspecified (principal); R31.9 Hematuria, unspecified
CPT/HCPCS: 74178; 82565

== ENCOUNTER → 2019-12-07 | Outpatient (CLI) | payer MEDICARE ==
--- NOTE | 2019-12-07 17:11 | WOMENS IMAGING REPORT ---
EXAM DESCRIPTION: BILAT SCREENING MAMMO W/CAD IMAGES COMPLETED DATE/TIME: 12/07/2019 11:41 am REASON FOR STUDY: Z12.31 ENCOUNTER FOR SCREENING MAMMOGRAM FOR MALIGNANT NEOPLASM OF BREAST Z12.31 ENCNTR SCREEN MAMMOGRAM FOR MALIGNANT NEOPLASM OF JEANINE COMPARISON: 07/13/2018 and 05/03/2017 EXAM PARAMETERS: Standard craniocaudal and mediolateral oblique views of each breast recorded using digital acquisition. Read with the assistance of CAD. .[employer] - R2 [employer]ova Version 1.3 LIMITATIONS: None. FINDINGS: No suspicious masses, suspicious calcifications or architectural distortion. No areas of c oncern. IMPRESSION: NEGATIVE MAMMOGRAM. BIRADS 1 BREAST DENSITY: c. The breasts are heterogeneously dense, which may obscure small masses. BIRAD: ASSESSMENT: 1 NEGATIVE RECOMMENDATION: ROUTINE SCREENING COMMENT: The patient has been notified of the results by letter per MQSA requirements. Additional no tification policies are in place for contacting patient with suspicious or incomplete findings. Quality ID #225: The [employer] recommends an annual screening mammogram for women aged 40 years or over. This facility utilizes a reminder system to ensure that all patients receive reminder letters, and/or direct phone calls for appointments. This includes reminders for routine scr eening mammograms, diagnostic mammograms, or other Breast Imaging Interventions when appropriate. Th is patient will be placed in the appropriate reminder system. TECHNICAL DOCUMENTATION: FINDING NUMBER: (1) ASSESSMENT: (1) JOB ID: [id number] 2010 [employer]- All Rights Reserved Reading location - IP/workstation name: [email or web address]
== END ==
LOC: WI 11:18
PROVIDERS: ATTEND Registered Nurse
DX: Z12.31 Encounter for screening mammogram for malignant neoplasm of breast (principal)
CPT/HCPCS: 77067

== ENCOUNTER 2020-06-20 13:48 | Emergency (ER) | payer MEDICARE ==
--- NOTE | 2020-06-20 15:19 | ER Document Report ---
ED Medical Screen (RME) - General Chief Complaint: Flank Pain Stated Complaint: FLANK PAIN Primary Care Provider: AMARIS DIEHL NP [Primary Care Provider] - Follow up as needed TRAVEL OUTSIDE OF THE [place] IN LAST 30 DAYS: No - HPI Notes: 06/20/20 15:15 Rapid Medical Exam HPI: Is a 70-year-old female who presents to the ER complaining of right lower abdominal pain and right flank pain for multiple days. Patient says she went to her primary care doctor who diagnosed her with a kidney stone by x-ray. She was started on Flomax and she is already taking pain medication for chronic pain. She has no history of kidney stones. Patient does endorse some urinary frequency but no dysuria. Patient says she could not take the pain today and her doctor told her to come to the ER to have a CAT scan. She has not been referred to urology. Patient denies gross hematuria. She has a prior appendectomy, hysterectomy. Reports normal bowel movements. Mild nausea wit hout vomiting. I reviewed patient's prior CAT scans from 5 months ago and did not visualize any intrarenal stones. CAT scan did comment on some biliary ductal dilation at the time. I will order urine and basic labs but will not order initial CT scan until labs and urine results and give us a more guidance. I will defer to the emergency room providers to make that decision Physical Exam: GENERAL: Well-appearing, well-nourished and in no acute distress. HEAD: Atraumatic, normocephalic. ENT: Moist mucous membranes. RESP: Respirations even and unlabored CV- Regular rate. NEURO: No focal neurological deficits. Moves all extremities spontaneously and on command. My involvement in this patients care was limited to a rapid initial assessment. A comprehensive ED assessment and evaluation of the patient, analysis of test results, treatment, and completion of the medical decision making process will be performed by other ER providers. - Related Data Allergies/Adverse Reactions: No Known Allergies Allergy (Verified 06/20/20 15:09) Home Medications: FLOMAX. ALBUTEROL. GABAPENTIN. DICYCLOMINE. OXYCODONE. O MEPRAZOLE. METFORMIN. BACLOFEN Past Medical History - Social History Chew tobacco use (# tins/day): No Frequency of alcohol use: None Drug Abuse: None - Past Medical History Cardiac Medical History: Reports: Hx Hypercholesterolemia, Hx Hypertension Pulmonary Medical History: Reports: Hx Pneumonia Endocrine Medical History: Reports: Hx Diabetes Mellitus Type 2 Renal/ Medical History: Denies: Hx Peritoneal Dialysis Psychiatric Medical History: Reports: Hx Depression Past Surgical History: Reports: Hx Appendectomy, Hx Hysterectomy, Hx Orthopedic Surgery - left rotater cuff repain - Immunizations Hx Diphtheria, Pertussis, Tetanus Vaccination: Yes Physical Exam - Vital signs Vitals: Temp Pulse BP Pulse Ox 98.5 F 103 H 108/53 L 93 06/20/20 14:15 06/20/20 14:15 06/20/20 14:15 06/20/20 14:15 Course - Vital Signs Vital signs: Temp Pulse Resp BP Pulse Ox 98.5 F 103 H 108/53 L 93 06/20/20 15:09 06/20/20 14:15 06/20/20 14:15 06/20/20 14:15 Doctor's Discharge - Discharge Referrals: AMARIS DIEHL, JOURNEYMAN POWERHOUSE OPERATOR [Primary Care Provider] - Follow up as needed
[2020-06-20 16:21] LABS: APPEARANCE,URINE CLEAR; BILIRUBIN,URINE NEGATIVE (NEGATIVE); COLOR,URINE YELLOW; GLUCOSE, URINE NEGATIVE (NEGATIVE); KETONES,URINE NEGATIVE (NEGATIVE); LEUKOCYTE ESTERASE,URINE NEGATIVE (NEGATIVE); NITRITE,URINE NEGATIVE (NEGATIVE); PROTEIN,URINE NEGATIVE (NEGATIVE); URINE SPECIFIC GRAVITY 1.011; UROBILINOGEN,URINE NEGATIVE mg/dL (<2.0)
[2020-06-20 16:29] LABS: ABSOLUTE BASOPHILS # (AUTO) 0.1 10^3/uL (0.0-0.2); ABSOLUTE LYMPHOCYTES (AUTO) 3.5 10^3/uL (0.5-4.7); ABSOLUTE MONOCYTES (AUTO) 0.8 10^3/uL (0.1-1.4); ABSOLUTE NEUT (AUTO) 5.2 10^3/uL (1.7-8.2); BASOPHILS % (AUTO) 0.8 % (0-2); EOSINOPHILS % (AUTO) 0.5 % (0-6); HEMATOCRIT 38.1 % (36.0-47.0); HEMOGLOBIN 13.1 g/dL (12.0-15.5); LYMPHOCYTES % (AUTO) 36.3 % (13-45); MEAN CORPUSCULAR HGB CONC 34.3 g/dL (32.0-36.0); MEAN CORPUSCULAR VOLUME 87 fl (80-97); MONOCYTES % (AUTO) 7.9 % (3-13); PLATELET COUNT 306 10^3/uL (150-450); RED BLOOD COUNT 4.36 10^6/uL (3.72-5.28); RED CELL DISTRIBUTION WIDTH 12.9 % (11.5-14.0); SEGMENTED NEUTROPHILS % (AUTO) 54.5 % (42-78); TOTAL CELLS COUNTED % (AUTO) 100 %; WHITE BLOOD COUNT 9.5 10^3/uL (4.0-10.5)
[2020-06-20 16:41] LABS: ALBUMIN 4.7 g/dL (3.5-5.0); ALKALINE PHOSPHATASE 75 U/L (38-126); ANION GAP 8 (5-19); ASPARTATE AMINO TRANSFERASE 17 U/L (14-36); BILIRUBIN,DIRECT 0.3 mg/dL (0.0-0.4); BILIRUBIN,TOTAL 0.4 mg/dL (0.2-1.3); BLOOD UREA NITROGEN 14 mg/dL (7-20); CALCIUM 9.9 mg/dL (8.4-10.2); CARBON DIOXIDE 31 mmol/L (22-30); CHLORIDE 100 mmol/L (98-107); GLUCOSE 107 mg/dL (75-110); POTASSIUM 4.6 mmol/L (3.6-5.0); TOTAL PROTEIN 7.9 g/dL (6.3-8.2)
[2020-06-20] MEDS ORDERED: KETOROLAC TROMETHAMINE INJ/PF 30 MG/1 ML SDV IV ONE (18:22)
[2020-06-20] MEDS ORDERED: ONDANSETRON HCL INJ/PF 4 MG/2 ML SDV IV ONE ×2 (18:44→19:54)
[2020-06-20] MEDS ORDERED: MORPHINE SULFATE 10 MG/ML INJ IV ONE ×2 (18:44→19:54)
--- NOTE | 2020-06-20 19:05 | RADIOLOGY REPORT (SQ) ---
EXAM DESCRIPTION: CT ABD/PELVIS NO ORAL OR IV IMAGES COMPLETED DATE/TIME: 06/20/2020 5:38 pm REASON FOR STUDY: right flank pain COMPARISON: CT abdomen and pelvis 12/05/2019. 09/14/2016. 09/24/2015. TECHNIQUE: CT scan of the abdomen and pelvis performed without intravenous or oral contrast. Images reviewed with lung, soft tissue, and bone windows. Reconstructed coronal and sagittal MPR images revi ewed. All images stored on PACS. All CT scanners at this facility use dose modulation, iterative reconstruction, and/or weight based d osing when appropriate to reduce radiation dose to as low as reasonably achievable (ALARA). [facility]: Dose Right [facility]: CareDose [facility]: Dose Right [facility]: Teradose 4D [facility]: Smart Marfeel RADIATION DOSE: CT Rad equipment meets quality standard of care and radiation dose reduction techniq ues were employed. CTDIvol: 4.9 mGy. DLP: 250 mGy-cm.mGy. LIMITATIONS: None. FINDINGS: LOWER CHEST: No significant findings. No nodules or infiltrates. NON-CONTRASTED LIVER, SPLEEN, ADRENALS: Liver has normal size and contour. Evaluation of the parench yma is limited without IV contrast. Spleen has normal size. A peripheral calcified lesion in the sp lenic parenchyma is stable from prior probably posttraumatic or post infectious/inflammatory. No adr enal mass. PANCREAS: No masses. No peripancreatic inflammatory changes. GALLBLADDER: No identified stones by CT criteria. No inflammatory changes to suggest cholecystitis. Stable prominence of the common bile duct at the hepatic hilum with gradual take the distally, unchan ged from previous examinations. RIGHT KIDNEY AND URETER: No suspicious masses. Assessment limited by lack of IV contrast. No signif icant calcifications. No hydronephrosis or hydroureter. LEFT KIDNEY AND URETER: No suspicious masses. Assessment limited by lack of IV contrast. No signifi cant calcifications. No hydronephrosis or hydroureter. AORTA AND RETROPERITONEUM: No aneurysm. No retroperitoneal masses or adenopathy. BOWEL AND PERITONEAL CAVITY: There are scattered colonic diverticula without evidence of diverticulit is. No bowel obstruction. No bowel wall thickening or mass. No significant inflammatory change. N o ascites or pneumoperitoneum. APPENDIX: Normal. PELVIS, BLADDER, AND ABDOMINAL WALL:No abnormal masses. No free fluid. Bladder normal. BONES: No significant findings. OTHER: No other significant finding. IMPRESSION: 1. No acute abnormality in the abdomen or pelvis. COMMENT: Quality ID # 436: Final reports with documentation of one or more dose reduction techniques (e.g., Automated exposure control, adjustment of the mA and/or kV according to patient size, use of iterative reconstruction technique) TECHNICAL DOCUMENTATION: JOB ID: [id number] 2010 [employer]- All Rights Reserved Reading location - IP/workstation name: [id number]
--- NOTE | 2020-06-20 19:58 | ER Document Report ---
Entered by CHUY MEADOWS SCRIBE 06/20/201816 Acting as scribe for:JESSIKA VO DO ED General - General Chief Complaint: Flank Pain Stated Complaint: FLANK PAIN Time Seen by Provider: 06/20/20 17:57 Primary Care Provider: AMARIS DIEHL, SENIOR PAYROLL MANAGER [NURSE PRACTITIONER] - Follow up as needed Information source: Patient Notes: This 70 year old female patient with history of DM type 2 and HLD, presents to the emergency department today with complaints of bilateral lower abdominal pain and right flank pain. Patient states she visited [facility] days ago and was told she has kidney stones after a xray. Patient reports mild nausea without vomiting. Denies any shortness of breath or burning with urination. TRAVEL OUTSIDE OF THE [place] IN LAST 30 DAYS: No - Related Data Allergies/Adverse Reactions: No Known Allergies Allergy (Verified 06/20/20 15:09) Home Medications: FLOMAX. ALBUTEROL. GABAPENTIN. DICYCLOMINE. OXYCODONE. OMEPRAZOLE. METFORMIN. BACLOFEN Past Medical History - General Information source: Patient, [facility] Records - Social History Smoking Status: Current Every Day Smoker Chew tobacco use (# tins/day): No Frequency of alcohol use: None Drug Abuse: None Family History: Reviewed & Not Pertinent Patient has homicidal ideation: No - Past Medical History Cardiac Medical History: Reports: Hx Hypercholesterolemia, Hx Hypertension Pulmonary Medical History: Reports: Hx Pneumonia Endocrine Medical History: Reports: Hx Diabetes Mellitus Type 2 Psychiatric Medical History: Reports: Hx Depression Past Surgical History: Reports: Hx Appendectomy, Hx Hysterectomy, Hx Orthopedic Surgery - left rotater cuff repain - Immunizations Hx Diphtheria, Pertussis, Tetanus Vaccination: Yes Hx Pneumococcal Vaccination: 07/01/12 Review of Systems - Review of Systems Constitutional: No symptoms reported EENT: No symptoms reported Cardiovascular: No symptoms reported Respiratory: See HPI. denies: Short of breath Gastrointestinal: See HPI, Abdominal pain, Nausea. denies: Vomiting Genitourinary: See HPI, Flank pain - right. denies: Burning Female Genitourinary: No symptoms reported Musculoskeletal: No symptoms reported Skin: No symptoms reported Hematologic/Lymphatic: No symptoms reported Neurological/Psychological: No symptoms reported -: Yes All other systems reviewed and negative Physical Exam - Vital signs Vitals: Temp Pulse BP Pulse Ox 98.5 F 103 H 108/53 L 93 06/20/20 14:15 06/20/20 14:15 06/20/20 14:15 06/20/20 14:15 - General General appearance: Appears well, Alert - HEENT Head: Normocephalic, Atraumatic Eyes: Normal Pupils: PERRL - Respiratory Respiratory status: No respiratory distress Chest status: Nontender Breath sounds: Normal Chest palpation: Normal - Cardiovascular Rhythm: Regular Heart sounds: Normal auscultation Murmur: No - Abdominal Inspection: Normal Distension: No distension Bowel sounds: Normal Notes: Mild tenderness with palpation to the bilateral lower quadrants. - Back Notes: Mild tenderness with palpation to the right paraspinal region. - Extremities General upper extremity: Normal inspection, Normal ROM General lower extremity: Normal inspection, Normal ROM. No: Edema - Neurological Neuro grossly intact: Yes Cognition: Normal Orientation: AAOx4 [place] Coma Scale Eye Opening: Spontaneous [place] Coma Scale Verbal: Oriented [place] Coma Scale Motor: Obeys Commands [place] Coma Scale Total: 15 Speech: Normal Sensory: Normal - Psychological Associated symptoms: Normal affect, Normal mood - Skin Skin Temperature: Warm Skin Moisture: Dry Skin Color: Normal Course - Vital Signs Vital signs: Temp Pulse Resp BP Pulse Ox 98.5 F 79 16 141/68 H 93 06/20/20 20:42 06/20/20 20:42 06/20/20 20:42 06/20/20 20:42 06/20/20 20:42 - Laboratory Results Result Diagrams: 06/20/20 15:52 06/20/20 15:52 Laboratory Results Interpreted: 06/20/20 06/20/20 15:52 15:52 Carbon Dioxide 31 H Lipase 17.2 L Urine Ascorbic Acid 40 H Critical Laboratory Results Reviewed: No Critical Results - Radiology Results Critical Radiology Results Reviewed: No Critical Results Discharge - Discharge Clinical Impression: Right flank pain Condition: Stable Disposition: HOME, SELF-CARE Instructions: Bulk Laxatives, Oral Narcotic Medication ([facility]), Pain Medication Injection ([facility]) Additional Instructions: Call your doctor for follow up. Call them in the morning. Return here for chest pain, shortness of breath, persistent vomiting, other problems or concerns. Prescriptions: Dicyclomine HCl [Bentyl 10 mg Capsule] 1 cap PO TID #15 cap Polyethylene Glycol 3350 [Miralax Powder 17 gm/Packet] 1 packet PO DAILY #7 pkg Referrals: AMARIS DIEHL, SENIOR PAYROLL MANAGER [NURSE PRACTITIONER] - Follow up as needed I personally performed the services described in the documentation, reviewed and edited the documentation which was dictated to the scribe in my presence, and it accurately records my words and actions.
[2020-06-20 20:43] VITALS: BP 141/68
== END 2020-06-20 20:35 | disposition home or self-care (01) ==
LOC: ER 13:48
DX: R10.31 Right lower quadrant pain (principal); R10.32 Left lower quadrant pain; R11.0 Nausea; E78.00 Pure hypercholesterolemia, unspecified; I10 Essential (primary) hypertension; E11.9 Type 2 diabetes mellitus without complications; Z90.710 Acquired absence of both cervix and uterus; Z88.6 Allergy status to analgesic agent
CPT/HCPCS: 96376; 99285; 96374; 96375; 36415; 83690; 85025; 80053; 81001; 74176; J2270; J2405